=== PATIENT | female | born 1990 | race Caucasian/White ===

== ENCOUNTER 2016-11-14 17:30 | Emergency (ER) | payer OTHER ==
[2016-11-14 17:37] VITALS: BP 125/73; PULSE 127; TEMP 98; BMI 26.5
[2016-11-14] MEDS ORDERED: LIDOCAINE VISCOUS 2% ORAL/TOP 100 ML BOTTLE MM ONE (18:09)
[2016-11-14] MEDS ORDERED: PANTOPRAZOLE SODIUM 40 MG in SODIUM CHLORIDE 100 ML IVPB ONE (18:09)
[2016-11-14] MEDS ORDERED: FAMOTIDINE 20 MG/50 ML IVPB 50 ML IVPB ONE ×2 (18:09→18:28)
[2016-11-14] MEDS ORDERED: MAG HYDROX/AL HYDROX/SIMETH 30 ML UNIT-DOSE CUP PO ONE (18:09)
[2016-11-14] MEDS ORDERED: MAG HYDROX/AL HYDROX/SIMETH 30 ML UNIT-DOSE CUP ONE (18:27)
[2016-11-14] MEDS ORDERED: PANTOPRAZOLE SODIUM 40 MG VIAL ONE (18:28)
--- NOTE | 2016-11-14 18:28 | PDOC ---
History of Present Illness <Hermes Tan - Last Filed: 11/14/16 18:28> - General History Source: Patient Exam Limitations: No Limitations - History of Present Illness Initial Comments: 11/14/16 18:29 The patient is a 25 year old female with significant past medical history of Graves disease, Dafne's disease, hyperthyroid, microcephaly, asthma who presents to the ED BIB mom for midsternal chest pain. She notes that the pain radiates to her upper back. As per mom she ate pashto food at 11 and at 2 she had spicy sausage and ziti after which she began to experience the chest discomfort. She notes that she took TUMS chewables which usually alleviates this pain but the pain continued. She reports that she has history of asymptomatic pneumonia. She reports 1 vomiting episode of only thick phlegm. She denies any fever, chills, cough, headache or constipation. FHX: everyone had cholecystectomy but her as per mother PCP - Dr. Chand <Kisha Reese - Last Filed: 11/14/16 18:58> <Brannon Vidal - Last Filed: 11/14/16 21:06> <Denton Wilson - Last Filed: 11/14/16 21:17> - General Chief Complaint: Chest Pain Stated Complaint: CHEST PAIN Time Seen by Provider: 11/14/16 18:00 Past History - Past Medical History GI Disorders: Yes Thyroid Disease: Yes (GRAVES, DAFNE) - Surgical History Abdominal Surgery: Yes (double hernia as child) - Immunization History Immunization Up to Date: Yes - Psycho/Social/Smoking Cessation Hx Anxiety: No Suicidal Ideation: No Smoking Status: No Smoking History: Never smoked Have you smoked in the past 12 months: No Number of Cigarettes Smoked Daily: 0 Information on smoking cessation initiated: No Hx Alcohol Use: No Drug/Substance Use Hx: No Substance Use Type: None Hx Substance Use Treatment: No <Hermes Tan - Last Filed: 11/14/16 18:28> <Kisha Reese - Last Filed: 11/14/16 18:58> <Brannon Vidal - Last Filed: 11/14/16 21:06> <Denton Wilson - Last Filed: 11/14/16 21:17> - Past Medical History Allergies/Adverse Reactions: Allergies Allergy/AdvReac Type Severity Reaction Status Date / Time No Known Allergies Allergy Verified 11/14/16 17:37 Home Medications: Ambulatory Orders Pantoprazole Sodium [Protonix] 40 mg PO DAILY #30 tablet. 11/14/16 Propylthiouracil 100 mg PO DAILY 11/14/16 Review of Systems - Review of Systems Able to Perform ROS?: Yes Comments:: 11/14/16 18:31 GENERAL/CONSTITUTIONAL: No fever or chills. No weakness. HEAD, EYES, EARS, NOSE AND THROAT: No change in vision. No ear pain or discharge. No sore throat. CARDIOVASCULAR: +chest pain. No shortness of breath. RESPIRATORY: No cough, wheezing, or hemoptysis. GASTROINTESTINAL: No nausea, vomiting, diarrhea or constipation. GENITOURINARY: No dysuria, frequency, or change in urination. MUSCULOSKELETAL: No joint or muscle swelling or pain. No neck or back pain. SKIN: No rash NEUROLOGIC: No headache, vertigo, loss of consciousness, or change in strength/ sensation. ENDOCRINE: No increased thirst. No abnormal weight change. HEMATOLOGIC/LYMPHATIC: No anemia, easy bleeding, or history of blood clots. ALLERGIC/IMMUNOLOGIC: No hives or skin allergy. <Kisha Reese - Last Filed: 11/14/16 18:58> *Physical Exam - Vital Signs Last Vital Signs Temp Pulse Resp BP Pulse Ox 98 F 127 H 18 125/73 98 11/14/16 17:31 11/14/16 17:31 11/14/16 17:31 11/14/16 17:31 11/14/16 18:12 <Hermes Tan - Last Filed: 11/14/16 18:28> - Vital Signs Last Vital Signs Temp Pulse Resp BP Pulse Ox 98 F 127 H 18 125/73 98 11/14/16 17:31 11/14/16 17:31 11/14/16 17:31 11/14/16 17:31 11/14/16 18:12 - Physical Exam Comments: 11/14/16 18:31 GENERAL: Awake, alert, and fully oriented, in no acute distress HEAD: No signs of trauma EYES: PERRLA, EOMI, sclera anicteric, conjunctiva clear ENT: Auricles normal inspection, hearing grossly normal, nares patent, oropharynx clear without exudates. Moist mucosa NECK: Normal ROM, supple, no lymphadenopathy, JVD, or masses LUNGS: Breath sounds equal, clear to auscultation bilaterally. No wheezes, and no crackles HEART: Regular rate and rhythm, normal S1 and S2, no murmurs, rubs or gallops ABDOMEN: Soft, nontender, normoactive bowel sounds. No guarding, no rebound. No masses EXTREMITIES: Normal range of motion, no edema. No clubbing or cyanosis. No cords, erythema, or tenderness NEUROLOGICAL: Cranial nerves II through XII grossly intact. Normal speech, normal gait SKIN: Warm, Dry, normal turgor, no rashes or lesions noted. <Kisha Reese - Last Filed: 11/14/16 18:58> - Vital Signs Last Vital Signs Temp Pulse Resp BP Pulse Ox 98 F 127 H 18 125/73 98 11/14/16 17:31 11/14/16 17:31 11/14/16 17:31 11/14/16 17:31 11/14/16 18:12 <Brannon Vidal - Last Filed: 11/14/16 21:06> - Vital Signs Last Vital Signs Temp Pulse Resp BP Pulse Ox 98 F 127 H 18 125/73 98 11/14/16 17:31 11/14/16 17:31 11/14/16 17:31 11/14/16 17:31 11/14/16 18:12 <Denton Wilson - Last Filed: 11/14/16 21:17> Heart Score/ECG Review #1 11/14/16 18:[address] Tan. Impression: sinus tachycardia, low voltage QRS, vent rate 117 bpm. <Kisha Reese - Last Filed: 11/14/16 18:58> ED Treatment Course - RADIOLOGY Radiology Studies Ordered: Category Date Time Status CHEST PA & LAT [RAD] Stat Radiology 11/14/16 18:09 Ordered ABDOMEN US -LIMITED [US] Stat Ultrasound 11/14/16 18:09 Ordered <Hermes Tan - Last Filed: 11/14/16 18:28> - LABORATORY CBC & Chemistry Diagram: 11/14/16 18:25 11/14/16 18:25 <Kisha Reese - Last Filed: 11/14/16 18:58> - LABORATORY CBC & Chemistry Diagram: 11/14/16 18:25 11/14/16 18:25 - ADDITIONAL ORDERS Additional order review: Laboratory Results 11/14/16 11/14/16 11/14/16 18:36 18:25 18:25 INR 0.99 Sodium 142 Potassium 3.8 Chloride 105 Carbon Dioxide 28 Anion Gap 9 BUN 12 Creatinine 1.0 D Creat Clearance w eGFR > 60 Random Glucose 131 H D Calcium 9.0 Total Bilirubin 0.2 D AST 12 L ALT 20 D Alkaline Phosphatase 113 Total Protein 7.8 Albumin 3.9 Lipase 156 Urine HCG, Qual Negative 11/14/16 18:25 RBC 4.59 MCV 85.4 MCHC 32.9 RDW 14.0 MPV 9.8 Neutrophils % 68.8 Lymphocytes % 24.7 Monocytes % 4.5 Eosinophils % 1.6 Basophils % 0.4 - RADIOLOGY Radiology Studies Ordered: 11/14/16 20:55 EXAM: Abdomen US (RUQ Sonogram) INTERPRETED BY: Dr. Liu REVIEWED BY: Dr. Wilson IMPRESSION: Unremarkable study EXAM: CXR INTERPRETED BY: Dr. Liu REVIEWED BY: Dr. Wilson IMPRESSION: No active disease - Medications Given in the ED: ED Medications Discontinued Medications Generic Name Dose Route Start Last Admin Trade Name Nataliya PRN Reason Stop Dose Admin Al Hydroxide/Mg Hydroxide 30 ml 11/14/16 18:09 11/14/16 18:47 Mylanta Oral Suspension - PO 11/14/16 18:10 30 ml ONCE ONE Administration Pantoprazole Sodium 40 mg/ 100 mls @ 200 mls/hr 11/14/16 18:09 11/14/16 18:47 Sodium Chloride IVPB 11/14/16 18:38 200 mls/hr ONCE ONE Administration Famotidine/Sodium Chloride 50 mls @ 100 mls/hr 11/14/16 18:09 11/14/16 18:47 Pepcid 20 Mg Premixed Ivpb - IVPB 11/14/16 18:38 100 mls/hr ONCE ONE Administration Lidocaine HCl 30 ml 11/14/16 18:09 11/14/16 18:47 Xylocaine 2% Viscous MM 11/14/16 18:10 30 ml ONCE ONE Administration <Brannon Vidal - Last Filed: 11/14/16 21:06> - LABORATORY CBC & Chemistry Diagram: 11/14/16 18:25 11/14/16 18:25 - ADDITIONAL ORDERS Additional order review: Laboratory Results 11/14/16 11/14/16 11/14/16 18:36 18:25 18:25 INR 0.99 Sodium 142 Potassium 3.8 Chloride 105 Carbon Dioxide 28 Anion Gap 9 BUN 12 Creatinine 1.0 D Creat Clearance w eGFR > 60 Random Glucose 131 H D Calcium 9.0 Total Bilirubin 0.2 D AST 12 L ALT 20 D Alkaline Phosphatase 113 Total Protein 7.8 Albumin 3.9 Lipase 156 Urine HCG, Qual Negative 11/14/16 18:25 RBC 4.59 MCV 85.4 MCHC 32.9 RDW 14.0 MPV 9.8 Neutrophils % 68.8 Lymphocytes % 24.7 Monocytes % 4.5 Eosinophils % 1.6 Basophils % 0.4 - Medications Given in the ED: ED Medications Discontinued Medications Generic Name Dose Route Start Last Admin Trade Name Jimq PRN Reason Stop Dose Admin Al Hydroxide/Mg Hydroxide 30 ml 11/14/16 18:09 11/14/16 18:47 Mylanta Oral Suspension - PO 11/14/16 18:10 30 ml ONCE ONE Administration Pantoprazole Sodium 40 mg/ 100 mls @ 200 mls/hr 11/14/16 18:09 11/14/16 18:47 Sodium Chloride IVPB 11/14/16 18:38 200 mls/hr ONCE ONE Administration Famotidine/Sodium Chloride 50 mls @ 100 mls/hr 11/14/16 18:09 11/14/16 18:47 Pepcid 20 Mg Premixed Ivpb - IVPB 11/14/16 18:38 100 mls/hr ONCE ONE Administration Lidocaine HCl 30 ml 11/14/16 18:09 11/14/16 18:47 Xylocaine 2% Viscous MM 11/14/16 18:10 30 ml ONCE ONE Administration <Denton Wilson - Last Filed: 11/14/16 21:17> Medical Decision Making - Medical Decision Making 11/14/16 18:30 The patient is a 25 year old female with significant past medical history of Graves disease, Dafne's disease, hyperthyroid, microcephaly, asthma who presents to the ED with midsternal chest pain after eating hot and spicy sausage . Will order CXR, meds and labs. Will reassess. 11/14/16 18:58 Since my shift is over, I endorse continuation of care to Dr. Wilson, an overnight physician. <Kisha Reese - Last Filed: 11/14/16 18:58> *DC/Admit/Observation/Transfer - Attestations Physician Attestion: 11/14/16 18:28 I, Dr. Hermes Tan, attest that this document has been prepared under my direction and personally reviewed by me in its entirety. I further attest, that it accurately reflects all work, treatment, procedures and medical decision -making performed by me. <Hermes Tan - Last Filed: 11/14/16 18:28> - Attestations Scribe Attestion: 11/14/16 18:31 Documentation prepared by DORIS Metzger, acting as medical clerk for Hermes Tan MD/DO. <Kisha Reese - Last Filed: 11/14/16 18:58> - Attestations Scribe Attestion: 11/14/16 20:57 Documentation prepared by Brannon Vidal, acting as medical clerk for Denton Wilson MD. <Brannon Vidal - Last Filed: 11/14/16 21:06> - Discharge Dispostion Admit: No <Denton Wilson - Last Filed: 11/14/16 21:17> Diagnosis at time of Disposition: Gastroesophageal reflux disease, Gastritis - Discharge Dispostion Disposition: HOME Condition at time of disposition: Improved - Prescriptions Prescriptions: Pantoprazole Sodium [Protonix] 40 mg PO DAILY #30 tablet.dr - Referrals Referrals: Otto Chand MD [Primary Care Provider] - - Patient Instructions Printed Discharge Instructions: DI for Gastroesophageal Reflux Disease (GERD), DI for Gastritis
[2016-11-14 18:41] LABS: BASOPHIL 0.4 % (0-2.0); EOSINOPHIL 1.6 % (0-4.5); MCH 28.1 pg (25.7-33.7); MCHC 32.9 g/dl (32.0-36.0); MEAN CELL VOLUME 85.4 fl (80-96); MEAN PLT VOLUME 9.8 fl (7.5-11.1); NEUTROPHILS 68.8 % (42.8-82.8); PLATELET COUNT 272 K/MM3 (134-434); WHITE BLOOD COUNT 9.1 K/mm3 (4.0-10.0)
[2016-11-14 18:59] LABS: ALBUMIN 3.9 g/dl (3.4-5.0); ANION GAP 9 (8-16); CO2 28 mmol/L (21-32); GLUCOSE,RANDOM 131 mg/dL (74-106); SGOT/AST 12 U/L (15-37); SGPT/ALT 20 U/L (12-78)
[2016-11-14 19:01] LABS: ALK PHOS 113 U/L (45-117); BILIRUBIN,TOTAL 0.2 mg/dL (0.2-1.0); TOT PROT 7.8 g/dl (6.4-8.2)
[2016-11-14 19:02] LABS: INR 0.99 (0.82-1.09); PROTHROMBIN TIME (PATIENT) 10.9 SEC (9.98-11.88)
--- NOTE | 2016-11-15 13:28 | EKG ---
Test Reason : Blood Pressure : / mmHG Vent. Rate : 117 BPM Atrial Rate : 117 BPM P-R Int : 124 ms QRS Dur : 062 ms QT Int : 304 ms P-R-T Axes : 060 011 036 degrees QTc Int : 424 ms SINUS TACHYCARDIA LOW VOLTAGE QRS CANNOT RULE OUT ANTERIOR INFARCT , AGE UNDETERMINED ABNORMAL ECG WHEN COMPARED WITH ECG OF 31-JUL-2015 06:35, NO SIGNIFICANT CHANGE WAS FOUND Confirmed by STANLEY VITALE MD ([id number]) on 11/15/2016 1:27:53 PM Referred By: Confirmed By:STANLEY VITALE MD
== END 2016-11-14 21:20 | disposition home or self-care (01) ==
LOC: JER 17:30
PROC: 3E033GC Introduction of Other Therapeutic Substance into Peripheral Vein, Percutaneous Approach (ICD-10-PCS; principal; 2016-11-14)
PROC: 3E033GC Introduction of Other Therapeutic Substance into Peripheral Vein, Percutaneous Approach (ICD-10-PCS; 2016-11-14)
DX: K21.9 Gastro-esophageal reflux disease without esophagitis (principal); K29.00 Acute gastritis without bleeding
CPT/HCPCS: 36415; 71020-TC; 76705-TC; 80053; 83690; 84703; 85025; 85610; 93005; 93010; 96365; 96368; 99284-25

== ENCOUNTER 2019-08-24 14:22 | Inpatient (IN) | payer OTHER ==
--- NOTE | 2019-08-24 14:26 | PDOC ---
Rapid Medical Evaluation Chief Complaint: Pain Medical Evaluation: Allergies Allergy/AdvReac Type Severity Reaction Status Date / Time No Known Allergies Allergy Verified 11/14/16 17:37 08/24/19 14:29 28 year old female with upper abdominal pain send from Dr. Chand's office for evaluation + nausea, PMHX: Hypothyroidism, graves disease, osteoporosis Pe: patient alert ox3 A: epigastric abdominal pain p: EKG labs UA urine 08/24/19 14:33 Discharge Disposition - Diagnosis Abdominal pain Qualifiers: Abdominal location: upper abdomen, unspecified Qualified Code(s): R10.10 - Upper abdominal pain, unspecified - Referrals - Patient Instructions - Post Discharge Activity
[2019-08-24 14:33] VITALS: BMI 30.9
[2019-08-24] MEDS ORDERED: MAG HYDROX/AL HYDROX/SIMETH 30 ML UNIT-DOSE CUP PO ONE (15:01)
[2019-08-24] MEDS ORDERED: FAMOTIDINE 20 MG/50 ML IVPB 20 MG/50 ML MG IVPB ONE ×2 (15:01→15:45)
[2019-08-24] MEDS ORDERED: SODIUM CHLORIDE 1,000 ML IV STA (15:01)
[2019-08-24] MEDS ORDERED: ONDANSETRON *ODT* 4 MG TABLET SL ONE (15:01)
[2019-08-24] MEDS ORDERED: ACETAMINOPHEN 1000 MG/100 ML VIAL (NON FORMULARY) IVPB ONE (15:02)
--- NOTE | 2019-08-24 15:28 | PDOC ---
History of Present Illness - General Chief Complaint: Pain Stated Complaint: SENT BY PCP/CHEST PAIN Time Seen by Provider: 08/24/19 14:26 History Source: Patient Exam Limitations: Clinical Condition - History of Present Illness Travel History: No Initial Comments: 08/24/19 15:40 Patient with history of hypothyroidism on Synthroid, Graves' disease, hydrocephalus presented with complaint of 3-day history of epigastric and right upper quadrant pain with nausea. Patient was seen by PCP office today to rule out cholecystitis or gallstone. Denies vomiting, fever, chills, body aches. Patient has not taken anything for symptoms. Denies diarrhea but report mild constipation with last bowel movement yesterday Timing/Duration: reports: getting worse Quality: reports: moderate, sharpness Abdominal Pain Onset Location: reports: RUQ, epigastric Pain Radiation: reports: back Activities at Onset: reports: none Aggravating Factors: improves with: Voiding Past History - Past Medical History Allergies/Adverse Reactions: Allergies Allergy/AdvReac Type Severity Reaction Status Date / Time No Known Allergies Allergy Verified 08/24/19 14:29 Home Medications: Ambulatory Orders Calcium Carbonate [Calcium] 1,200 mg PO DAILY 08/01/15 Cholecalciferol (Vitamin D3) [Vitamin D3] 2,000 unit PO AM 08/01/15 Levothyroxine [Synthroid -] 75 mcg PO DAILY 08/01/15 COPD: No GI Disorders: Yes Thyroid Disease: Yes (GRAVES, LOLIS) Other medical history: osteoporosis, scoliosis - Surgical History Abdominal Surgery: Yes (double hernia as child) - Immunization History Immunization Up to Date: Yes - Psycho Social/Smoking Cessation Hx Smoking Status: No Smoking History: Never smoked Have you smoked in the past 12 months: No Number of Cigarettes Smoked Daily: 0 Hx Alcohol Use: No Drug/Substance Use Hx: No Substance Use Type: None Hx Substance Use Treatment: No Review of Systems - Review of Systems Able to Perform ROS?: Yes Is the patient limited Turkish proficient: No Constitutional: No: Chills, Fever, Malaise HEENTM: No: Symptoms Reported, See HPI, Eye Pain, Blurred Vision, Tearing, Recent change in vision, Double Vision, Cataracts, Ear Pain, Ocular Prothesis, Ear Discharge, Nose Pain, Nose Congestion, Tinnitus, Nose Bleeding, Hearing Loss , Throat Pain, Throat Swelling, Mouth Pain, Dental Problems, Difficulty Swallowing, Mouth Swelling, Other Respiratory: No: Symptoms reported, See HPI, Cough, Orthopnea, Shortness of Breath, SOB with Exertion, SOB at Rest, Stridor, Wheezing, Productive cough, Hemoptysis, Other ABD/GI: Yes: Symptoms Reported, See HPI, Nausea, Abdominal cramping (RUQ/ epigastric pain). No: Abdominal Distended, Abd. Pain w/ defecation, Blood Streaked Bowels, Constipated, Diarrhea, Difficulty Swallowing, Poor Appetite, Poor Fluid Intake, Rectal Bleeding, Vomiting, Indigestion, Tarry Stools, Other : No: Burning, Discharge, Frequency, Pain, Urgency Musculoskeletal: No: Symptoms Reported Integumentary: No: Symptoms Reported Neurological: Yes: Symptoms reported, See HPI, Headache. No: Numbness, Paresthesia, Seizure, Tremors, Dizziness All Other Systems: Reviewed and Negative *Physical Exam - Vital Signs Last Vital Signs Temp Pulse Resp BP Pulse Ox 97.7 F 117 H 18 129/83 100 08/24/19 14:30 08/24/19 14:30 08/24/19 14:30 08/24/19 14:30 08/24/19 14:30 - Physical Exam Comments: 08/24/19 15:26 GENERAL: Well developed, well nourished. Awake and alert. No acute distress. HEENT: Normocephalic, atraumatic. PERRLA, EOMI. No conjunctival pallor. Sclera are non-icteric. Moist mucous membranes. Oropharynx is clear. NECK: Supple. Full ROM. CARDIOVASCULAR: Regular rate and rhythm. No murmurs, rubs, or gallops. Distal pulses are 2+ and symmetric. PULMONARY: No evidence of respiratory distress. Lungs clear to auscultation bilaterally. No wheezing, rales or rhonchi. ABDOMINAL: Soft. moderate epigastric and RUQ tenderness. Non-distended. No rebound or guarding. No organomegaly. Normoactive bowel sounds. MUSCULOSKELETAL Normal range of motion at all joints. SKIN: Warm and dry. Normal capillary refill. No rashes. No jaundice. No Cyanosis. NEUROLOGICAL: Alert, awake, appropriate. Gait is normal without ataxia. PSYCHIATRIC: Cooperative. Good eye contact. Appropriate mood General Appearance: Yes: Nourished, Appropriately Dressed. No: Apparent Distress ED Treatment Course - LABORATORY CBC & Chemistry Diagram: 11/18/19 05:50 08/27/19 05:50 - RADIOLOGY Radiology Studies Ordered: Category Date Time Status ABDOMEN US -LIMITED [US] Stat Ultrasound 08/24/19 15:00 Ordered Medical Decision Making - Medical Decision Making 08/24/19 15:42 Patient with history of hypothyroidism on Synthroid, Graves' disease, hydrocephalus presented with complaint of 3-day history of epigastric and right upper quadrant pain with nausea. Patient was seen by PCP office today to rule out cholecystitis or gallstone. Denies vomiting, fever, chills, body aches. Patient has not taken anything for symptoms. Denies diarrhea but report mild constipation with last bowel movement yesterday Exam significant for moderate tenderness to epigastric region right upper quadrant without guarding or rebound. Diffuse increased bowel sounds. No masses palpable in the abdomen. Patient afebrile. Symptoms likely cholecystitis versus gallstone versus pancreatitis. CBC, CMP and lipase lab ordered. UA, urine hCG and urine culture labs ordered. Abdominal ultrasound ordered to rule out cholecystitis or gallstone. IV hydration with normal saline 1 L ordered and Tylenol 1 g IV ordered for pain. Pepcid 20 mg IV ordered for epigastric discomfort and Maalox 30 mL p.o. ordered with 4 mg sublingual Zofran for nausea. Treat based on lab and imaging results 08/26/19 15:56 Patient signed out to oncoming team YENNY Mijares for f/u care Discharge - Discharge Information Problems reviewed: Yes Clinical Impression/Diagnosis: Abdominal pain Qualifiers: Abdominal location: epigastric Qualified Code(s): R10.13 - Epigastric pain Condition: Stable - Follow up/Referral - Patient Discharge Instructions - Post Discharge Activity
[2019-08-24] MEDS ORDERED: ACETAMINOPHEN INJECTION 100 ML IVPB ONE (15:44)
[2019-08-24] MEDS ORDERED: ONDANSETRON *ODT* 4 MG TABLET ONE (15:44)
[2019-08-24] MEDS ORDERED: MAG HYDROX/AL HYDROX/SIMETH 30 ML UNIT-DOSE CUP ONE (15:44)
[2019-08-24 16:00] LABS: BASO % 0.3 % (0-2.0); EOS % 0.4 % (0-4.5); HEMATOCRIT 39.5 % (32.4-45.2); HEMOGLOBIN 12.9 GM/dL (10.7-15.3); LYMPH % 13.3 % (8-40); MCHC 32.7 g/dl (32.0-36.0); MEAN CELL VOLUME 82.7 fl (80-96); MEAN PLT VOLUME 9.6 fl (7.5-11.1); MONO % 6.8 % (3.8-10.2); NEUT % 79.2 % (42.8-82.8); PLATELET COUNT 300 K/MM3 (134-434); RBC 4.77 M/mm3 (3.60-5.2); RDW 14.5 % (11.6-15.6); WHITE BLOOD COUNT 9.1 K/mm3 (4.0-10.0)
[2019-08-24 16:36] LABS: ALBUMIN 3.8 g/dl (3.4-5.0); BILIRUBIN,TOTAL 0.4 mg/dL (0.2-1); BLOOD UREA NITROGEN 8.1 mg/dL (7-18); CALCIUM 9.2 mg/dL (8.5-10.1); CREATININE 0.8 mg/dL (0.55-1.3); POTASSIUM 3.8 mmol/L (3.5-5.1); TOT PROT 8.4 g/dl (6.4-8.2)
--- NOTE | 2019-08-24 17:15 | PDOC ---
*Physical Exam - Vital Signs Last Vital Signs Temp Pulse Resp BP Pulse Ox 97.7 F 117 H 18 129/83 100 08/24/19 14:30 08/24/19 14:30 08/24/19 14:30 08/24/19 14:30 08/24/19 15:15 ED Treatment Course - LABORATORY CBC & Chemistry Diagram: 08/24/19 15:35 08/24/19 15:35 - ADDITIONAL ORDERS Additional order review: Laboratory Results 08/24/19 15:35 Sodium 136 Potassium 3.8 Chloride 103 Carbon Dioxide 24 Anion Gap 8 BUN 8.1 Creatinine 0.8 Est GFR (CKD-EPI)AfAm 115.47 Est GFR (CKD-EPI)NonAf 99.63 Random Glucose 103 Calcium 9.2 Total Bilirubin 0.4 AST 35 ALT 51 Alkaline Phosphatase 120 H Total Protein 8.4 H Albumin 3.8 Lipase 1163 H TSH 2.47 08/24/19 15:35 RBC 4.77 MCV 82.7 MCHC 32.7 RDW 14.5 MPV 9.6 Neutrophils % 79.2 Lymphocytes % 13.3 D Monocytes % 6.8 Eosinophils % 0.4 Basophils % 0.3 - Medications Given in the ED: ED Medications Discontinued Medications Generic Name Dose Route Start Last Admin Trade Name Frechase PRN Reason Stop Dose Admin Acetaminophen 1,000 mg 08/24/19 15:02 08/24/19 16:41 Ofirmev Injection - IVPB 08/24/19 15:03 1,000 mg ONCE ONE Administration Al Hydroxide/Mg Hydroxide 30 ml 08/24/19 15:01 08/24/19 16:20 Mylanta Oral Suspension - PO 08/24/19 15:02 30 ml ONCE ONE Administration Sodium Chloride 1,000 mls @ 1,000 mls/hr 08/24/19 15:01 08/24/19 16:40 Normal Saline - IV 08/24/19 16:00 1,000 mls/hr ASDIR STA Administration Ondansetron HCl 4 mg 08/24/19 15:01 08/24/19 16:20 Zofran Odt - SL 08/24/19 15:02 4 mg ONCE ONE Administration Medical Decision Making - Medical Decision Making Patient signed out to by YENNY Moss, pending labs and RUQ sono Patient currently resting in NAD RUQ sono negative for any acute findings Labs reviewed - T.Bili, AST, ALT normal Lipase elevated though Will admit for acute pancreatitis 08/24/19 17:13 Discharge - Discharge Information Problems reviewed: Yes Clinical Impression/Diagnosis: Acute pancreatitis Qualifiers: Pancreatitis type: unspecified pancreatitis type Acute pancreatitis complication: unspecified Qualified Code(s): K85.90 - Acute pancreatitis without necrosis or infection, unspecified Condition: Stable - Admission Yes - Follow up/Referral Referrals: Rj Kiser, HUGH [Primary Care Provider] - - Patient Discharge Instructions - Post Discharge Activity
--- NOTE | 2019-08-24 17:55 | HP ---
CHIEF COMPLAINT: right upper abdominal pain, nausea PCP: Dr. 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 Patient was seen in the ED pending bed assignment. She is not able to provide me a full history , her mom was at the bedside and was able to provide the history. Per patient' s mom, patient was born prematurely with microcephaly and was intubated for the first 3 months of her life. She follows closely with a chaser apprentice for her Graves disease and was on PTU since age 12, she was taken off PTU and put on Synthroid. Synthroid recently increased four (4) months ago by chaser apprentice (she was initially on Synthroid 50mcg and increased to 75mcgs). Patient presents to the ED after she was seen by her primary care doctor for complaints of a 3-day history of epigastric and right upper quadrant pain with nausea. Patient denies fever, diarrhea or constipation. her last BM was yesterday. On exam patient had moderate tenderness of light palpation of her right upper abdomen without any guarding or rebound. She had bowel sounds without any palpable masses on abdomen. She is afebrile and her vitals signs are stable. 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 : Social History: Smoking: denies Alcohol:denies Drugs: denies Allergies No Known Allergies Allergy (Verified 08/24/19 14:29) HOME MEDICATIONS: Home Medications Medication Instructions Recorded Calcium Carbonate [Calcium] 1,200 mg PO DAILY 08/01/15 Cholecalciferol (Vitamin D3) 3,000 unit PO AM 08/01/15 [Vitamin D3] Levothyroxine [Synthroid -] 37.5 mcg PO DAILY 08/01/15 Pantoprazole Sodium [Protonix] 40 mg PO DAILY #30 tablet. 11/14/16 Propylthiouracil 100 mg PO DAILY 11/14/16 PHYSICAL EXAMINATION Vital Signs - 24 hr 08/24/19 08/24/19 14:30 15:15 Temperature 97.7 F Pulse Rate 117 H Respiratory 18 Rate Blood Pressure 129/83 O2 Sat by Pulse 100 100 Oximetry (%) GENERAL: Awake, alert, and oriented, in no acute distress. poor historian HEAD: Normal with no signs of trauma. EYES: Pupils equal, round and reactive to light, extraocular movements intact, sclera anicteric, conjunctiva clear. No lid lag. EARS, NOSE, THROAT: Ears normal, nares patent, oropharynx clear without exudates. Moist mucous membranes. NECK: Normal range of motion, supple without lymphadenopathy, JVD, or masses. LUNGS: Breath sounds equal, clear to auscultation bilaterally. HEART: Regular rate and rhythm ABDOMEN: + epigastric pain ruq pain, + bowel sounds, non distended MUSCULOSKELETAL: Normal range of motion at all joints. No bony deformities or tenderness. No CVA tenderness. UPPER EXTREMITIES: 2+ pulses, warm, well-perfused. No cyanosis. No clubbing. No peripheral edema. LOWER EXTREMITIES: 2+ pulses, warm, well-perfused. No calf tenderness. No peripheral edema. SKIN: Warm, dry, normal turgor, no rashes or lesions noted, normal capillary refill. Laboratory Results - last 24 hr 08/24/19 08/24/19 15:35 15:35 WBC 9.1 RBC 4.77 Hgb 12.9 Hct 39.5 MCV 82.7 MCH 27.0 MCHC 32.7 RDW 14.5 Plt Count 300 MPV 9.6 Absolute Neuts (auto) 7.2 Neutrophils % 79.2 Lymphocytes % 13.3 D Monocytes % 6.8 Eosinophils % 0.4 Basophils % 0.3 Nucleated RBC % 0 Sodium 136 Potassium 3.8 Chloride 103 Carbon Dioxide 24 Anion Gap 8 BUN 8.1 Creatinine 0.8 Est GFR (CKD-EPI)AfAm 115.47 Est GFR (CKD-EPI)NonAf 99.63 Random Glucose 103 Calcium 9.2 Total Bilirubin 0.4 AST 35 ALT 51 Alkaline Phosphatase 120 H Total Protein 8.4 H Albumin 3.8 Lipase 1163 H TSH 2.47 ASSESSMENT/PLAN: Family Medical History Family History: Denies Problem List - Problem (1) Elevated lipase Assessment/Plan: elevated lipase on admissio with ruq pain/nausea ultrasound negative for acute process will keep npo with ivf hydration repeat lipase in a.m. GI consulted. Code(s): R74.8 - ABNORMAL LEVELS OF OTHER SERUM ENZYMES (2) Acute pancreatitis Assessment/Plan: elevated lipase unclear etiology. medication induced? keep npo may need ct abd/pelvis if worsening lipase Code(s): K85.90 - ACUTE PANCREATITIS WITHOUT NECROSIS OR INFECTION, UNSP Qualifiers: Pancreatitis type: unspecified pancreatitis type Acute pancreatitis complication: unspecified Qualified Code(s): K85.90 - Acute pancreatitis without necrosis or infection, unspecified (3) GERD (gastroesophageal reflux disease) Assessment/Plan: protonix IV Code(s): K21.9 - GASTRO-ESOPHAGEAL REFLUX DISEASE WITHOUT ESOPHAGITIS (4) Headache Assessment/Plan: no headaches reported, however, hx of chronic headaches tylenol iv prn Code(s): R51 - HEADACHE Qualifiers: Headache type: unspecified Headache chronicity pattern: acute headache Intractability: not intractable Qualified Code(s): R51 - Headache (5) Prophylactic measure Assessment/Plan: fen ivf @ 100cc hr monitor electrolytes npo full code Code(s): Z29.9 - ENCOUNTER FOR PROPHYLACTIC MEASURES, UNSPECIFIED Visit type - Emergency Visit Emergency Visit: Yes ED Registration Date: 08/24/19 Care time: The patient presented to the Emergency Department on the above date and was hospitalized for further evaluation of their emergent condition. - New Patient This patient is new to me today: Yes Date on this admission: 08/24/19 - Critical Care Critical Care patient: No
[2019-08-24] MEDS ORDERED: ONDANSETRON 4 MG/2 ML VIAL IVPUSH PRN (20:05)
[2019-08-24] MEDS ORDERED: SODIUM CHLORIDE 1,000 ML IV SCH (20:15)
[2019-08-24] MEDS: ACETAMINOPHEN 1000 MG/100 ML VIAL (NON FORMULARY) IVPB PRN (23:16)
[2019-08-25 06:37] LABS: HEMATOCRIT 34.5 % (32.4-45.2); HEMOGLOBIN 11.3 GM/dL (10.7-15.3); MCH 27.1 pg (25.7-33.7); MCHC 32.8 g/dl (32.0-36.0); MEAN CELL VOLUME 82.7 fl (80-96); PLATELET COUNT 259 K/MM3 (134-434); RBC 4.17 M/mm3 (3.60-5.2); RDW 14.5 % (11.6-15.6); WHITE BLOOD COUNT 6.2 K/mm3 (4.0-10.0)
[2019-08-25 07:13] LABS: BLOOD UREA NITROGEN 7.9 mg/dL (7-18); CALCIUM 8.5 mg/dL (8.5-10.1); CREATININE 0.6 mg/dL (0.55-1.3); MAGNESIUM 2.2 mg/dL (1.8-2.4); POTASSIUM 3.6 mmol/L (3.5-5.1)
[2019-08-25 09:21] LABS: EPI CELLS 12.3 /HPF (0-5/HPF); HYALINE CASTS 2 /lpf (0-8); PH,URINE 6.5 (5.0-8.0); URINE APPEARANCE CLEAR; URINE BACTERIA 257.6 /hpf (NEGATIVE); URINE BILIRUBIN NEGATIVE (NEGATIVE); URINE COLOR YELLOW; URINE GLUCOSE (UA) NEGATIVE (NEGATIVE); URINE KETONE 1+ (NEGATIVE); URINE LEUK ESTERASE NEGATIVE (NEGATIVE); URINE NITRITE NEGATIVE (NEGATIVE); URINE PROTEIN NEGATIVE (NEGATIVE); URINE RBC 4 /hpf (0-4); URINE UROBILINOGEN 0.2 mg/dL (0.2-1.0)
[2019-08-25 09:34] LABS: URINE WBC 0-4 /hpf (0-5)
[2019-08-25 09:35] LABS: YEAST NEGATIVE (NEGATIVE)
[2019-08-25] MEDS: LEVOTHYROXINE SODIUM 100 MCG VIAL IVPUSH SCH (10:01)
[2019-08-25] MEDS ORDERED: SODIUM CHLORIDE 1,000 ML IV SCH (15:33)
[2019-08-25 17:13] LABS: ALK PHOS 93 U/L (45-117); SGOT/AST 23 U/L (15-37); SGPT/ALT 38 U/L (13-61)
--- NOTE | 2019-08-25 18:27 | PN ---
Physical Exam: SUBJECTIVE: Patient seen and examined. no overnight events, still having right upper quad pain. 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 Per patient's mom , patient was born prematurely with microcephaly and was intubated for the first 3 months of her life. She follows closely with a director of scout work for her Graves disease and was on PTU since age 12, she was taken off PTU and put on Synthroid. Synthroid recently increased four (4) months ago by director of scout work (she was initially on Synthroid 50mcg and increased to 75mcgs). Patient presents to the ED after she was seen by her primary care doctor for complaints of a 3-day history of epigastric and right upper quadrant pain with nausea. Discussed with Dr. Palma, increased IVF to 250cc/hr NS, will sent for ct scan of abd/pelvis as her lipase remains elevated. Vital Signs Period Temp Pulse Resp BP Sys/Damon Pulse Ox Last 24 Hr 97.6 F-98.3 F 67-95 16-20 100-119/57-72 96-99 GENERAL: Awake, alert, and oriented, in no acute distress. poor historian HEAD: Normal with no signs of trauma. EYES: Pupils equal, round and reactive to light, extraocular movements intact, sclera anicteric, conjunctiva clear. No lid lag. EARS, NOSE, THROAT: Ears normal, nares patent, oropharynx clear without exudates. Moist mucous membranes. NECK: Normal range of motion, supple without lymphadenopathy, JVD, or masses. LUNGS: Breath sounds equal, clear to auscultation bilaterally. HEART: Regular rate and rhythm ABDOMEN: + epigastric pain ruq pain, + bowel sounds, non distended MUSCULOSKELETAL: Normal range of motion at all joints. No bony deformities or tenderness. No CVA tenderness. UPPER EXTREMITIES: 2+ pulses, warm, well-perfused. No cyanosis. No clubbing. No peripheral edema. LOWER EXTREMITIES: 2+ pulses, warm, well-perfused. No calf tenderness. No peripheral edema. SKIN: Warm, dry, normal turgor, no rashes or lesions noted, normal capillary refill. Laboratory Results - last 24 hr 08/24/19 08/25/19 08/25/19 07:45 06:20 06:20 WBC 6.2 RBC 4.17 Hgb 11.3 Hct 34.5 MCV 82.7 MCH 27.1 MCHC 32.8 RDW 14.5 Plt Count 259 MPV 9.0 Sodium 138 Potassium 3.6 Chloride 107 Carbon Dioxide 25 Anion Gap 6 L BUN 7.9 Creatinine 0.6 Est GFR (CKD-EPI)AfAm 142.76 Est GFR (CKD-EPI)NonAf 123.17 POC Glucometer Random Glucose 88 Hemoglobin A1c % Calcium 8.5 Magnesium 2.2 AST ALT Alkaline Phosphatase Total Amylase Lipase 2212 H TSH 8.62 H Thyroxine (T4) 13.7 Urine Color Yellow Urine Appearance Clear Urine pH 6.5 Ur Specific [place] 1.018 Urine Protein Negative Urine Glucose (UA) Negative Urine Ketones 1+ H Urine Blood 3+ H Urine Nitrite Negative Urine Bilirubin Negative Urine Urobilinogen 0.2 Ur Leukocyte Esterase Negative Urine WBC (Auto) 0-4 Urine RBC (Auto) 4 Urine Casts (Auto) 2 U Epithel Cells (Auto) 12.3 Urine Bacteria (Auto) 257.6 Urine Yeast (Auto) Negative Urine HCG, Qual 08/25/19 08/25/19 08/25/19 07:45 11:15 15:08 WBC RBC Hgb Hct MCV MCH MCHC RDW Plt Count MPV Sodium Potassium Chloride Carbon Dioxide Anion Gap BUN Creatinine Est GFR (CKD-EPI)AfAm Est GFR (CKD-EPI)NonAf POC Glucometer Random Glucose Hemoglobin A1c % 5.0 Calcium Magnesium AST 23 ALT 38 Alkaline Phosphatase 93 Total Amylase Lipase TSH Thyroxine (T4) Urine Color Urine Appearance Urine pH Ur Specific [place] Urine Protein Urine Glucose (UA) Urine Ketones Urine Blood Urine Nitrite Urine Bilirubin Urine Urobilinogen Ur Leukocyte Esterase Urine WBC (Auto) Urine RBC (Auto) Urine Casts (Auto) U Epithel Cells (Auto) Urine Bacteria (Auto) Urine Yeast (Auto) Urine HCG, Qual Negative 08/25/19 08/25/19 15:08 16:50 WBC RBC Hgb Hct MCV MCH MCHC RDW Plt Count MPV Sodium Potassium Chloride Carbon Dioxide Anion Gap BUN Creatinine Est GFR (CKD-EPI)AfAm Est GFR (CKD-EPI)NonAf POC Glucometer 70 Random Glucose Hemoglobin A1c % Calcium Magnesium AST ALT Alkaline Phosphatase Total Amylase 206 H Lipase TSH Thyroxine (T4) Urine Color Urine Appearance Urine pH Ur Specific [place] Urine Protein Urine Glucose (UA) Urine Ketones Urine Blood Urine Nitrite Urine Bilirubin Urine Urobilinogen Ur Leukocyte Esterase Urine WBC (Auto) Urine RBC (Auto) Urine Casts (Auto) U Epithel Cells (Auto) Urine Bacteria (Auto) Urine Yeast (Auto) Urine HCG, Qual Active Medications Generic Name Dose Route Start Last Admin Trade Name Freq PRN Reason Stop Dose Admin Acetaminophen 1,000 mg 08/24/19 20:06 08/24/19 23:16 Ofirmev Injection - IVPB 1,000 mg Q6H PRN Administration PAIN LEVEL 4 - 6 Sodium Chloride 1,000 mls @ 200 mls/hr 08/25/19 15:33 Normal Saline - IV ASDIR TRAVIS Levothyroxine Sodium 37.5 mcg 08/25/19 10:00 08/25/19 10:01 Synthroid Injection - IVPUSH 37.5 mcg DAILY TRAVIS Administration Ondansetron HCl 4 mg 08/24/19 20:05 Zofran Injection IVPUSH Q8H PRN NAUSEA ASSESSMENT/PLAN: Problem List - Problems (1) Elevated lipase Assessment/Plan: lipase 1200 > 2200 ultrasound negative for acute process will keep npo with ivf hydration, increase ivf to 250cc/hr repeat lipase in a.m. for abd/pelvis ct to look for acute pancreatitis GI consulted and case discussed. Code(s): R74.8 - ABNORMAL LEVELS OF OTHER SERUM ENZYMES (2) Acute pancreatitis Assessment/Plan: elevated lipase unclear etiology. medication induced? keep npo, ice chips allowed Code(s): K85.90 - ACUTE PANCREATITIS WITHOUT NECROSIS OR INFECTION, UNSP Qualifiers: Pancreatitis type: unspecified pancreatitis type Acute pancreatitis complication: unspecified Qualified Code(s): K85.90 - Acute pancreatitis without necrosis or infection, unspecified (3) GERD (gastroesophageal reflux disease) Assessment/Plan: protonix IV Code(s): K21.9 - GASTRO-ESOPHAGEAL REFLUX DISEASE WITHOUT ESOPHAGITIS (4) Headache Assessment/Plan: no headaches reported, however, hx of chronic headaches tylenol iv prn Code(s): R51 - HEADACHE Qualifiers: Headache type: unspecified Headache chronicity pattern: acute headache Intractability: not intractable Qualified Code(s): R51 - Headache (5) Prophylactic measure Assessment/Plan: fen ivf @ 250cc hr monitor electrolytes npo full code Code(s): Z29.9 - ENCOUNTER FOR PROPHYLACTIC MEASURES, UNSPECIFIED Visit type - Emergency Visit Emergency Visit: Yes ED Registration Date: 08/24/19 Care time: The patient presented to the Emergency Department on the above date and was hospitalized for further evaluation of their emergent condition. - New Patient This patient is new to me today: No - Critical Care Critical Care patient: No - Discharge Referral Referred to [facility] Med P.C.: No
[2019-08-25] MEDS: SODIUM CHLORIDE 1,000 ML IV SCH (20:37)
[2019-08-26] MEDS: SODIUM CHLORIDE 1,000 ML IV SCH ×3 (00:53→10:22)
[2019-08-26] MEDS: ACETAMINOPHEN 1000 MG/100 ML VIAL (NON FORMULARY) IVPB PRN (03:47)
[2019-08-26] MEDS ORDERED: MAG HYDROX/AL HYDROX/SIMETH 30 ML UNIT-DOSE CUP PO ONE ×2 (03:51→13:27)
[2019-08-26 07:37] LABS: BASO % 0.3 % (0-2.0); EOS % 1.7 % (0-4.5); HEMATOCRIT 30.4 % (32.4-45.2); MCH 27.1 pg (25.7-33.7); MEAN CELL VOLUME 82.1 fl (80-96); MEAN PLT VOLUME 9.1 fl (7.5-11.1); MONO % 8.4 % (3.8-10.2); NEUT % 52.6 % (42.8-82.8); PLATELET COUNT 205 K/MM3 (134-434); WHITE BLOOD COUNT 4.5 K/mm3 (4.0-10.0)
[2019-08-26 07:53] LABS: CHOLESTEROL 140 mg/dL (50-200); HDL CHOLESTEROL 33 mg/dL (40-60); LDL CHOLESTEROL (ONLY SJRH) 87 mg/dL (5-100); TRIGLYCERIDES 113 mg/dL (0-150)
[2019-08-26 07:59] LABS: ALBUMIN 2.8 g/dl (3.4-5.0); BILIRUBIN,TOTAL 0.4 mg/dL (0.2-1); BLOOD UREA NITROGEN 5.9 mg/dL (7-18); CALCIUM 8.3 mg/dL (8.5-10.1); CREATININE 0.6 mg/dL (0.55-1.3); POTASSIUM 4.2 mmol/L (3.5-5.1); TOT PROT 6.2 g/dl (6.4-8.2)
[2019-08-26] MEDS: LEVOTHYROXINE SODIUM 100 MCG VIAL IVPUSH SCH (09:19)
--- NOTE | 2019-08-26 10:41 | PN ---
Progress Note (short form) - Note Progress Note: Asked to see this 28 y.o. F admitted with 3 days of upper abdominal pain, found to have elevated lipase. Pain has now fully resolved, patient anxious to eat. Laboratory Results - last 24 hr 08/25/19 08/25/19 08/25/19 11:15 15:08 15:08 WBC RBC Hgb Hct MCV MCH MCHC RDW Plt Count MPV Absolute Neuts (auto) Neutrophils % Lymphocytes % Monocytes % Eosinophils % Basophils % Nucleated RBC % Sodium Potassium Chloride Carbon Dioxide Anion Gap BUN Creatinine Est GFR (CKD-EPI)AfAm Est GFR (CKD-EPI)NonAf POC Glucometer Random Glucose Hemoglobin A1c % 5.0 Calcium Magnesium Total Bilirubin AST 23 ALT 38 Alkaline Phosphatase 93 Total Protein Albumin Triglycerides Cholesterol Total LDL Cholesterol HDL Cholesterol Total Amylase 206 H Lipase TSH Free T4 08/25/19 08/26/19 08/26/19 16:50 05:40 06:20 WBC 4.5 RBC 3.70 Hgb 10.0 L Hct 30.4 L MCV 82.1 MCH 27.1 MCHC 33.0 RDW 14.0 Plt Count 205 D MPV 9.1 Absolute Neuts (auto) 2.4 Neutrophils % 52.6 D Lymphocytes % 37.0 D Monocytes % 8.4 Eosinophils % 1.7 D Basophils % 0.3 Nucleated RBC % 0 Sodium Potassium Chloride Carbon Dioxide Anion Gap BUN Creatinine Est GFR (CKD-EPI)AfAm Est GFR (CKD-EPI)NonAf POC Glucometer 70 79 Random Glucose Hemoglobin A1c % Calcium Magnesium Total Bilirubin AST ALT Alkaline Phosphatase Total Protein Albumin Triglycerides Cholesterol Total LDL Cholesterol HDL Cholesterol Total Amylase Lipase TSH Free T4 08/26/19 08/26/19 06:20 06:20 WBC RBC Hgb Hct MCV MCH MCHC RDW Plt Count MPV Absolute Neuts (auto) Neutrophils % Lymphocytes % Monocytes % Eosinophils % Basophils % Nucleated RBC % Sodium 140 Potassium 4.2 Chloride 110 H Carbon Dioxide 24 Anion Gap 6 L BUN 5.9 L Creatinine 0.6 Est GFR (CKD-EPI)AfAm 142.76 Est GFR (CKD-EPI)NonAf 123.17 POC Glucometer Random Glucose 78 Hemoglobin A1c % Calcium 8.3 L Magnesium 2.0 Total Bilirubin 0.4 AST 20 ALT 31 Alkaline Phosphatase 81 Total Protein 6.2 L Albumin 2.8 L Triglycerides 113 Cholesterol 140 Total LDL Cholesterol 87 HDL Cholesterol 33 L Total Amylase 149 H Lipase 1052 H TSH 4.26 H Free T4 1.28 Amylase now down < 200. Lipase still 1000 but lipase has a long half-life in the blood. On abdominal exam she has no tenderness. CT scan (my review, not read yet) does not show any significant pancreatic inflammation. At this point the causes of acute pancreatitis include: 1) alcohol - not an issue for her 2) gallstones - not seen on ultrasound. So-called microlithiasis is possible. 3) hypertriglyceridemia - excluded by labs 4) pancreatic cancer - not at all likely 5) pancreas divisum (affects several percent of the population, is an abnormality of pancreatic development and sometimes is a cause of pancreatitis) 6) medications - ARMANDO inhibitors and others - not an issue here 7) "idiopathic" - not able to make the diagnosis based on one episode. I would allow feeding now and obtain an MRCP/MRI pancreas as an outpatient to exclude developmental abnormality of pancreas. Discussed above with patient and her mother.
[2019-08-26] MEDS: ACETAMINOPHEN 325 MG TABLET (FP) PO PRN ×2 (14:02→20:02)
[2019-08-26] MEDS ORDERED: IBUPROFEN 200 MG TABLET PO ONE (14:32)
--- NOTE | 2019-08-26 15:39 | PN ---
Physical Exam: SUBJECTIVE: Patient seen and examined at the bedside. was up for d/c home but developed chest pain before d/c at 1:30pm patient reports chest pain as left sided, constant and feels sharp. chest pain overnight was on right side. this pain of left chest is accompanied by headache. tylenol not helping, given motrin and maalox w/o relief. no shortness of breath. OBJECTIVE: ekg shows nsr, no other findings will send troponins x 3 3:30pm, seen again, patient states her chest pain is still not subsiding, vitals remains stable: will send for chest xray and transfer to [facility] for closer cardiac monitoring. 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 Per patient's mom , patient was born prematurely with microcephaly and was intubated for the first 3 months of her life. She follows closely with a pharmaceutical representative for her Graves disease and was on PTU since age 12, she was taken off PTU and put on Synthroid. Synthroid recently increased four (4) months ago by pharmaceutical representative (she was initially on Synthroid 50mcg and increased to 75mcgs). Patient presents to the ED after she was seen by her primary care doctor for complaints of a 3-day history of epigastric and right upper quadrant pain with nausea. all consents that are needed are to be made by patient's mother [phone] * * per mom, patient is unable to consent for herself due to hx of microcephaly Vital Signs Period Temp Pulse Resp BP Sys/Damon Pulse Ox Last 24 Hr 97.7 F-98.0 F 78-95 16-22 105-147/58-73 96-99 GENERAL: Awake, alert, and oriented, in no acute distress. poor historian HEAD: Normal with no signs of trauma. EYES: Pupils equal, round and reactive to light, extraocular movements intact, sclera anicteric, conjunctiva clear. No lid lag. EARS, NOSE, THROAT: Ears normal, nares patent, oropharynx clear without exudates. Moist mucous membranes. NECK: Normal range of motion, supple without lymphadenopathy, JVD, or masses. LUNGS: Breath sounds equal, clear to auscultation bilaterally. HEART: Regular rate and rhythm ABDOMEN: + epigastric pain ruq pain, + bowel sounds, non distended MUSCULOSKELETAL: Normal range of motion at all joints. No bony deformities or tenderness. No CVA tenderness. UPPER EXTREMITIES: 2+ pulses, warm, well-perfused. No cyanosis. No clubbing. No peripheral edema. LOWER EXTREMITIES: 2+ pulses, warm, well-perfused. No calf tenderness. No peripheral edema. SKIN: Warm, dry, normal turgor, no rashes or lesions noted, normal capillary refill. Laboratory Results - last 24 hr 08/25/19 08/25/19 08/25/19 15:08 15:08 16:50 WBC RBC Hgb Hct MCV MCH MCHC RDW Plt Count MPV Absolute Neuts (auto) Neutrophils % Lymphocytes % Monocytes % Eosinophils % Basophils % Nucleated RBC % Sodium Potassium Chloride Carbon Dioxide Anion Gap BUN Creatinine Est GFR (CKD-EPI)AfAm Est GFR (CKD-EPI)NonAf POC Glucometer 70 Random Glucose Calcium Magnesium Total Bilirubin AST 23 ALT 38 Alkaline Phosphatase 93 Total Protein Albumin Triglycerides Cholesterol Total LDL Cholesterol HDL Cholesterol Total Amylase 206 H Lipase TSH Free T4 08/26/19 08/26/19 08/26/19 05:40 06:20 06:20 WBC 4.5 RBC 3.70 Hgb 10.0 L Hct 30.4 L MCV 82.1 MCH 27.1 MCHC 33.0 RDW 14.0 Plt Count 205 D MPV 9.1 Absolute Neuts (auto) 2.4 Neutrophils % 52.6 D Lymphocytes % 37.0 D Monocytes % 8.4 Eosinophils % 1.7 D Basophils % 0.3 Nucleated RBC % 0 Sodium 140 Potassium 4.2 Chloride 110 H Carbon Dioxide 24 Anion Gap 6 L BUN 5.9 L Creatinine 0.6 Est GFR (CKD-EPI)AfAm 142.76 Est GFR (CKD-EPI)NonAf 123.17 POC Glucometer 79 Random Glucose 78 Calcium 8.3 L Magnesium 2.0 Total Bilirubin 0.4 AST 20 ALT 31 Alkaline Phosphatase 81 Total Protein 6.2 L Albumin 2.8 L Triglycerides Cholesterol Total LDL Cholesterol HDL Cholesterol Total Amylase 149 H Lipase 1052 H TSH 4.26 H Free T4 1.28 08/26/19 06:20 WBC RBC Hgb Hct MCV MCH MCHC RDW Plt Count MPV Absolute Neuts (auto) Neutrophils % Lymphocytes % Monocytes % Eosinophils % Basophils % Nucleated RBC % Sodium Potassium Chloride Carbon Dioxide Anion Gap BUN Creatinine Est GFR (CKD-EPI)AfAm Est GFR (CKD-EPI)NonAf POC Glucometer Random Glucose Calcium Magnesium Total Bilirubin AST ALT Alkaline Phosphatase Total Protein Albumin Triglycerides 113 Cholesterol 140 Total LDL Cholesterol 87 HDL Cholesterol 33 L Total Amylase Lipase TSH Free T4 Active Medications Generic Name Dose Route Start Last Admin Trade Name Freq PRN Reason Stop Dose Admin Acetaminophen 650 mg 08/26/19 13:23 08/26/19 14:02 Tylenol - PO 650 mg Q6H PRN Administration PAIN LEVEL 6-10 Levothyroxine Sodium 37.5 mcg 08/25/19 10:00 08/26/19 09:19 Synthroid Injection - IVPUSH 37.5 mcg DAILY TRAVIS Administration Ondansetron HCl 4 mg 08/24/19 20:05 Zofran Injection IVPUSH Q8H PRN NAUSEA ASSESSMENT/PLAN: Problem List - Problems (1) Chest pain Assessment/Plan: chest pain today, left sided, non radiating, feels sharp, not associated with shortness of breath or dizziness. last night had right sided chest pain, epigastric pain, resolved with maalox today was given motrin, tylenol and maalaox, no relief trending trops transfer to cardiac unit for closer monitor of chest pain cardiology consulted Code(s): R07.9 - CHEST PAIN, UNSPECIFIED (2) Elevated lipase Assessment/Plan: trended down, unknown etiology. discussed with Dr. cramer and started on a regular diet. Code(s): R74.8 - ABNORMAL LEVELS OF OTHER SERUM ENZYMES (3) Acute pancreatitis Assessment/Plan: elevated lipase unclear etiology. medication induced? lipase trended down Code(s): K85.90 - ACUTE PANCREATITIS WITHOUT NECROSIS OR INFECTION, UNSP Qualifiers: Pancreatitis type: unspecified pancreatitis type Acute pancreatitis complication: unspecified Qualified Code(s): K85.90 - Acute pancreatitis without necrosis or infection, unspecified (4) GERD (gastroesophageal reflux disease) Assessment/Plan: protonix Code(s): K21.9 - GASTRO-ESOPHAGEAL REFLUX DISEASE WITHOUT ESOPHAGITIS (5) Headache Assessment/Plan: tylenol prn Code(s): R51 - HEADACHE Qualifiers: Headache type: unspecified Headache chronicity pattern: acute headache Intractability: not intractable Qualified Code(s): R51 - Headache (6) Prophylactic measure Assessment/Plan: fen regular diet monitor electrolytes full code Code(s): Z29.9 - ENCOUNTER FOR PROPHYLACTIC MEASURES, UNSPECIFIED Visit type - Emergency Visit Emergency Visit: Yes ED Registration Date: 08/24/19 Care time: The patient presented to the Emergency Department on the above date and was hospitalized for further evaluation of their emergent condition. - New Patient This patient is new to me today: No - Critical Care Critical Care patient: No - Discharge Referral Referred to [facility] Med P.C.: No
--- NOTE | 2019-08-26 16:51 | EKG ---
Test Reason : Blood Pressure : / mmHG Vent. Rate : 083 BPM Atrial Rate : 083 BPM P-R Int : 144 ms QRS Dur : 068 ms QT Int : 348 ms P-R-T Axes : 049 -02 024 degrees QTc Int : 408 ms NORMAL SINUS RHYTHM NORMAL ECG WHEN COMPARED WITH ECG OF 24-AUG-2019 14:25, NO SIGNIFICANT CHANGE WAS FOUND Confirmed by DARRYL ALFARO MD ([id number]) on 08/26/2019 4:51:28 PM Referred By: Karolina HANLEY Confirmed By:DARRYL ALFARO MD
--- NOTE | 2019-08-26 20:23 | EKG ---
Test Reason : Blood Pressure : / mmHG Vent. Rate : 110 BPM Atrial Rate : 110 BPM P-R Int : 136 ms QRS Dur : 066 ms QT Int : 318 ms P-R-T Axes : 050 006 031 degrees QTc Int : 430 ms SINUS TACHYCARDIA OTHERWISE NORMAL ECG WHEN COMPARED WITH ECG OF 14-NOV-2016 17:36, NO SIGNIFICANT CHANGE WAS FOUND Confirmed by YAHIR MADRID MD ([id number]) on 08/26/2019 8:22:43 PM Referred By: Confirmed By:YAHIR MADRID MD
--- NOTE | 2019-08-26 21:09 | CON.CARD ---
Consult Consult Specialty:: cardiology Reason for Consultation:: chest pain - History of Present Illness Chief Complaint: Pt A&o; still with mild left submammary sticking chest pain that is increased with palpation of the area (no rash); she has had this often at home. History of Present Illness: Patient with history of hypothyroidism on Synthroid, Graves' disease, hydrocephalus presented with complaint of 3-day history of epigastric and right upper quadrant pain with nausea. Patient was seen by PCP office today to rule out cholecystitis or gallstone. Denies vomiting, fever, chills, body aches. Patient has not taken anything for symptoms. Denies diarrhea but report mild constipation with last bowel movement yesterday Timing/Duration: reports: getting worse Quality: reports: moderate, sharpness Abdominal Pain Onset Location: reports: RUQ, epigastric Pain Radiation: reports: back Activities at Onset: reports: none Aggravating Factors: improves with: Voiding - History Source History Provided By: Patient, Medical Record - Past Medical History Pulmonary: No: Asthma ...LMP: 08/21/19 ...: No Endocrine: Yes: Hyperthyroidism - Alcohol/Substance Use Hx Alcohol Use: No History of Substance Use: reports: None - Smoking History Smoking history: Never smoked Have you smoked in the past 12 months: No Aproximately how many cigarettes per day: 0 - Social History ADL: Independent History of Recent Travel: No Home Medications - Allergies Allergies/Adverse Reactions: Allergies Allergy/AdvReac Type Severity Reaction Status Date / Time No Known Allergies Allergy Verified 08/24/19 14:29 - Home Medications Home Medications: Ambulatory Orders Calcium Carbonate [Calcium] 1,200 mg PO DAILY 08/01/15 Cholecalciferol (Vitamin D3) [Vitamin D3] 2,000 unit PO AM 08/01/15 Levothyroxine [Synthroid -] 75 mcg PO DAILY 08/01/15 Vital Signs: Vital Signs Temperature 97.5 F L 08/26/19 18:34 Pulse Rate 84 08/26/19 18:34 Respiratory Rate 18 08/26/19 18:34 Blood Pressure 118/62 08/26/19 18:34 O2 Sat by Pulse Oximetry (%) 97 08/26/19 18:34 - Other Data Labs, Other Data: CBC, BMP 08/26/19 06:20 08/26/19 06:20 Troponin, BNP 08/26/19 14:50 Troponin I < 0.02 Troponin, BNP 08/26/19 14:50 Troponin I < 0.02 Problem List - Problems (1) Hypothyroid Code(s): E03.9 - HYPOTHYROIDISM, UNSPECIFIED (2) Atypical chest pain Assessment/Plan: Her mother, per telephone tonight, says the only family hx of heart disease is "AF in the whole family" She says her daughter has "microcephaly", and her daughter did not tell her about chest pain at home, though the pt now says she sometimes does have it at home. The pain was initially reported under the right breast; now she says it is under the left breast. ECHO pending. TNI < 0.02; f/u serially. If it remains negative, may follow up cardiac status as outpatient. Problems reviewed: Yes Code(s): R07.89 - OTHER CHEST PAIN (3) Overweight Code(s): E66.3 - OVERWEIGHT (4) Sedentary lifestyle Code(s): Z91.89 - OTH PERSONAL RISK FACTORS, NOT ELSEWHERE CLASSIFIED (5) Acute pancreatitis Code(s): K85.90 - ACUTE PANCREATITIS WITHOUT NECROSIS OR INFECTION, UNSP Qualifiers: Pancreatitis type: unspecified pancreatitis type Acute pancreatitis complication: unspecified Qualified Code(s): K85.90 - Acute pancreatitis without necrosis or infection, unspecified (6) Elevated lipase Code(s): R74.8 - ABNORMAL LEVELS OF OTHER SERUM ENZYMES (7) Bilateral pneumonia Code(s): J18.9 - PNEUMONIA, UNSPECIFIED ORGANISM Qualifiers: Pneumonia type: due to unspecified organism (8) GERD (gastroesophageal reflux disease) Code(s): K21.9 - GASTRO-ESOPHAGEAL REFLUX DISEASE WITHOUT ESOPHAGITIS
[2019-08-27] MEDS ORDERED: ONDANSETRON 4 MG/2 ML VIAL IVPUSH PRN (01:07)
[2019-08-27] MEDS ORDERED: ACETAMINOPHEN 325 MG TABLET (FP) PO PRN (01:07)
[2019-08-27] MEDS: LEVOTHYROXINE NA 75 MCG TABLET (FP) PO SCH (06:31)
[2019-08-27 07:56] LABS: ALBUMIN 3.4 g/dl (3.4-5.0); ALK PHOS 102 U/L (45-117); ANION GAP 7 MMOL/L (8-16); BILIRUBIN,TOTAL 0.2 mg/dL (0.2-1); BLOOD UREA NITROGEN 11.2 mg/dL (7-18); CALCIUM 8.9 mg/dL (8.5-10.1); CHLORIDE 107 mmol/L (98-107); CO2 24 mmol/L (21-32); CREATININE 0.7 mg/dL (0.55-1.3); GLUCOSE,RANDOM 88 mg/dL (74-106); MAGNESIUM 2.1 mg/dL (1.8-2.4); POTASSIUM 4.1 mmol/L (3.5-5.1); SGOT/AST 21 U/L (15-37); SGPT/ALT 32 U/L (13-61); SODIUM 138 mmol/L (136-145); TOT PROT 7.6 g/dl (6.4-8.2)
--- NOTE | 2019-08-27 08:13 | PN ---
Progress Note, Physician History of Present Illness: Chief Complaint: Pt A&o; still with mild left submammary sticking chest pain that is increased with palpation of the area (no rash); she has had this often at home. History of Present Illness: Patient with history of hypothyroidism on Synthroid, Graves' disease, hydrocephalus presented with complaint of 3-day history of epigastric and right upper quadrant pain with nausea. Patient was seen by PCP office today to rule out cholecystitis or gallstone. Denies vomiting, fever, chills, body aches. Patient has not taken anything for symptoms. Denies diarrhea but report mild constipation with last bowel movement yesterday Timing/Duration: reports: getting worse Quality: reports: moderate, sharpness Abdominal Pain Onset Location: reports: RUQ, epigastric - Current Medication List Current Medications: Active Medications Acetaminophen (Tylenol -) 650 mg PO Q6H PRN PRN Reason: PAIN LEVEL 6-10 Last Admin: 08/27/19 06:32 Dose: 650 mg Levothyroxine Sodium (Synthroid -) 75 mcg PO [facility] Last Admin: 08/27/19 06:31 Dose: 75 mcg Ondansetron HCl (Zofran Injection) 4 mg IVPUSH Q8H PRN PRN Reason: NAUSEA - Objective Vital Signs: Vital Signs Temperature 97.7 F 08/27/19 05:54 Pulse Rate 81 08/27/19 05:54 Respiratory Rate 18 08/27/19 05:54 Blood Pressure 114/64 08/27/19 05:54 O2 Sat by Pulse Oximetry (%) 98 08/26/19 21:00 Eyes: Yes: WNL, Conjunctiva Clear, EOM Intact HENT: Yes: WNL, Atraumatic, Normocephalic Neck: Yes: WNL, Supple, Trachea Midline Cardiovascular: Yes: WNL, Regular Rate and Rhythm Respiratory: Yes: WNL, Regular, CTA Bilaterally Gastrointestinal: Yes: WNL, Normal Bowel Sounds Genitourinary: Yes: WNL Musculoskeletal: Yes: WNL Extremities: Yes: WNL Edema: No Integumentary: Yes: WNL Neurological: Yes: WNL, Alert, Oriented ...Motor Strength: WNL Psychiatric: Yes: WNL Labs: CBC, BMP 08/27/19 05:50 Assessment/Plan - Problems (1) Hypothyroid Code(s): E03.9 - HYPOTHYROIDISM, UNSPECIFIED (2) Atypical chest pain Assessment/Plan: Her mother, per telephone ter, says the only family hx of heart disease is "AF in the whole family" She says her daughter has "microcephaly", and her daughter did not tell her about chest pain at home, though the pt now says she sometimes does have it at home. The pain was initially reported under the right breast; now she says it is under the left breast. ECHO pending. TNI < 0.02; f/u serially. If it remains negative, may follow up cardiac status as outpatient. Problems reviewed: Yes Code(s): R07.89 - OTHER CHEST PAIN (3) Overweight Code(s): E66.3 - OVERWEIGHT (4) Sedentary lifestyle Code(s): Z91.89 - OTH PERSONAL RISK FACTORS, NOT ELSEWHERE CLASSIFIED (5) Acute pancreatitis Code(s): K85.90 - ACUTE PANCREATITIS WITHOUT NECROSIS OR INFECTION, UNSP Qualifiers: Pancreatitis type: unspecified pancreatitis type Acute pancreatitis complication: unspecified Qualified Code(s): K85.90 - Acute pancreatitis without necrosis or infection, unspecified (6) Elevated lipase Code(s): R74.8 - ABNORMAL LEVELS OF OTHER SERUM ENZYMES (7) Bilateral pneumonia Code(s): J18.9 - PNEUMONIA, UNSPECIFIED ORGANISM Qualifiers: Pneumonia type: due to unspecified organism (8) GERD (gastroesophageal reflux disease) Code(s): K21.9 - GASTRO-ESOPHAGEAL REFLUX DISEASE WITHOUT ESOPHAGITIS
[2019-08-27] MEDS ORDERED: MAG HYDROX/AL HYDROX/SIMETH 30 ML UNIT-DOSE CUP PO PRN (08:45)
[2019-08-27 09:36] LABS: BASO % 0.4 % (0-2.0); EOS % 2.2 % (0-4.5); HEMATOCRIT 36.7 % (32.4-45.2); LYMPH % 28.2 % (8-40); MCH 26.7 pg (25.7-33.7); MCHC 32.5 g/dl (32.0-36.0); MEAN CELL VOLUME 82.2 fl (80-96); MEAN PLT VOLUME 9.5 fl (7.5-11.1); MONO % 7.7 % (3.8-10.2); NEUT % 61.5 % (42.8-82.8); PLATELET COUNT 282 K/MM3 (134-434); RBC 4.47 M/mm3 (3.60-5.2); RDW 14.5 % (11.6-15.6); WHITE BLOOD COUNT 5.1 K/mm3 (4.0-10.0)
--- NOTE | 2019-08-27 12:25 | ECHO ---
Name: LEODAN SMITH Exam:Adult Echocardiogram Study Date: 08/27/2019 09:06 AM Age: 28 yrs Reason For Study: chest pain Height: 63 in Weight: 175 lb BSA: 1.8 m2 MMode/2D Measurements & Calculations RVDd: 2.4 cm Ao root diam: 2.4 cm IVSd: 0.59 cm LA dimension: 3.2 cm LVIDd: 4.0 cm ACS: 1.7 cm LVIDs: 2.4 cm LVPWd: 0.64 cm IVSs: 0.93 cm LVPWs: 1.0 cm EDV(Teich): 70.0 ml ESV(Teich): 21.1 ml Doppler Measurements & Calculations MV E max arvind: 73.8 cm/sec Ao V2 max: 124.1 cm/sec MV A max arvind: 60.2 cm/sec Ao max P.2 mmHg MV E/A: 1.2 Med Peak E' Arvind: 10.0 cm/sec Med E/e': 7.4 Lat Peak E' Arvind: 13.2 cm/sec Lat E/e': 5.6 Procedure A complete two-dimensional transthoracic echocardiogram was performed (2D, M-mode, Doppler and color flow Doppler). Left Ventricle The left ventricle is normal in size. Left ventricular systolic function is normal. Ejection Fraction = 65- 70%. No regional wall motion abnormalities noted. Right Ventricle The right ventricle is normal size. The right ventricular systolic function is normal. Atria The left atrial size is normal. Right atrial size is normal. Mitral Valve The mitral valve is normal in structure and function. There is no mitral regurgitation noted. Tricuspid Valve The tricuspid valve is normal in structure and function. No tricuspid regurgitation. Aortic Valve The aortic valve is normal in structure and function. No aortic regurgitation is present. Pulmonic Valve The pulmonic valve is not well visualized. Great Vessels The aortic root is normal size. Pericardium/Pleura There is no pericardial effusion. Interpretation Summary The left ventricle is normal in size. Left ventricular systolic function is normal. No regional wall motion abnormalities noted. Ejection Fraction = 65-70%. The right ventricular systolic function is normal. The left atrial size is normal. Right atrial size is normal. No significant valvular regurgitations are seen Bud Baker MD 08/27/2019 12:24 PM
--- NOTE | 2019-08-27 13:59 | PN ---
Physical Exam: SUBJECTIVE: Patient seen and examined at the bedside. patient reports her chest pain has resolved, but had developed abdominal pain, mostly on lower quadrants with nausea, no vomiting. She reports 3 episodes of diarrhea this a.m. Asked patient to not flush toilet so we can measure accurately. OBJECTIVE: npo at midnight for mrcp to r/o acute pancreatitis as abdominal pain has returned ekg shows nsr, no other findings troponins negative x 3 seen by hoop maker helper machine, echo with no acute findings. mesenteric lymph notes seen on ct scan, patient informed/mother informed for follow up outpatient in 2 months with repeat scan. 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 Per patient's mom , patient was born prematurely with microcephaly and was intubated for the first 3 months of her life. She follows closely with a [employer] manager for her Graves disease and was on PTU since age 12, she was taken off PTU and put on Synthroid. Synthroid recently increased four (4) months ago by [employer] manager (she was initially on Synthroid 50mcg and increased to 75mcgs). Patient presents to the ED after she was seen by her primary care doctor for complaints of a 3-day history of epigastric and right upper quadrant pain with nausea. all consents that are needed are to be made by patient's mother [phone] * per mom, patient is unable to consent for herself due to hx of microcephaly. Vital Signs Period Temp Pulse Resp BP Sys/Damon Pulse Ox Last 24 Hr 97.3 F-97.8 F 75-85 18-18 108-120/62-80 97-98 GENERAL: Awake, alert, and oriented, in no acute distress. poor historian HEAD: Normal with no signs of trauma. EYES: Pupils equal, round and reactive to light, extraocular movements intact, sclera anicteric, conjunctiva clear. No lid lag. EARS, NOSE, THROAT: Ears normal, nares patent, oropharynx clear without exudates. Moist mucous membranes. NECK: Normal range of motion, supple without lymphadenopathy, JVD, or masses. LUNGS: Breath sounds equal, clear to auscultation bilaterally. HEART: Regular rate and rhythm ABDOMEN: + epigastric pain ruq pain, + bowel sounds, non distended, reports 3 episodes of diarrhea. MUSCULOSKELETAL: Normal range of motion at all joints. No bony deformities or tenderness. No CVA tenderness. UPPER EXTREMITIES: 2+ pulses, warm, well-perfused. No cyanosis. No clubbing. No peripheral edema. LOWER EXTREMITIES: 2+ pulses, warm, well-perfused. No calf tenderness. No peripheral edema. SKIN: Warm, dry, normal turgor, no rashes or lesions noted, normal capillary refill. Laboratory Results - last 24 hr 08/26/19 08/27/19 08/27/19 14:50 01:20 01:20 WBC RBC Hgb Hct MCV MCH MCHC RDW Plt Count MPV Absolute Neuts (auto) Neutrophils % Lymphocytes % Monocytes % Eosinophils % Basophils % Nucleated RBC % Sodium Potassium Chloride Carbon Dioxide Anion Gap BUN Creatinine Est GFR (CKD-EPI)AfAm Est GFR (CKD-EPI)NonAf POC Glucometer Random Glucose Calcium Magnesium Total Bilirubin AST ALT Alkaline Phosphatase Troponin I < 0.02 < 0.02 Cancelled Total Protein Albumin 08/27/19 08/27/19 08/27/19 05:50 05:50 06:41 WBC 5.1 RBC 4.47 Hgb 12.0 Hct 36.7 D MCV 82.2 MCH 26.7 MCHC 32.5 RDW 14.5 Plt Count 282 D MPV 9.5 Absolute Neuts (auto) 3.2 Neutrophils % 61.5 Lymphocytes % 28.2 D Monocytes % 7.7 Eosinophils % 2.2 Basophils % 0.4 Nucleated RBC % 0 Sodium 138 Potassium 4.1 Chloride 107 Carbon Dioxide 24 Anion Gap 7 L BUN 11.2 Creatinine 0.7 Est GFR (CKD-EPI)AfAm 135.70 Est GFR (CKD-EPI)NonAf 117.08 POC Glucometer 98 Random Glucose 88 Calcium 8.9 Magnesium 2.1 Total Bilirubin 0.2 AST 21 ALT 32 Alkaline Phosphatase 102 Troponin I < 0.02 Total Protein 7.6 Albumin 3.4 Active Medications Generic Name Dose Route Start Last Admin Trade Name Freq PRN Reason Stop Dose Admin Acetaminophen 650 mg 08/27/19 01:07 08/27/19 06:32 Tylenol - PO 650 mg Q6H PRN Administration PAIN LEVEL 6-10 Al Hydroxide/Mg Hydroxide 30 ml 08/27/19 08:45 08/27/19 09:50 Mylanta Oral Suspension - PO 30 ml Q6H PRN Administration DYSPEPSIA Levothyroxine Sodium 75 mcg 08/27/19 07:00 08/27/19 06:31 Synthroid - PO 75 mcg ACBK TRAVIS Administration Ondansetron HCl 4 mg 08/27/19 01:07 Zofran Injection IVPUSH Q8H PRN NAUSEA ASSESSMENT/PLAN: Problem List - Problems (1) Chest pain Assessment/Plan: chest pain resolved, negative troponins. reports worse abdominal pain, for MRCP tomorrow. cardiology following, notes appreciated. Code(s): R07.9 - CHEST PAIN, UNSPECIFIED (2) Elevated lipase Assessment/Plan: trended down, unknown etiology. discussed with Dr. cramer and started on a regular diet, however patient developed diarrhea and acute adominal pain. for mrcp. repeat lipase, amylase in a.m. Code(s): R74.8 - ABNORMAL LEVELS OF OTHER SERUM ENZYMES (3) Acute pancreatitis Assessment/Plan: elevated lipase unclear etiology. medication induced? lipase trended down, repeat Code(s): K85.90 - ACUTE PANCREATITIS WITHOUT NECROSIS OR INFECTION, UNSP Qualifiers: Pancreatitis type: unspecified pancreatitis type Acute pancreatitis complication: unspecified Qualified Code(s): K85.90 - Acute pancreatitis without necrosis or infection, unspecified (4) GERD (gastroesophageal reflux disease) Assessment/Plan: protonix Code(s): K21.9 - GASTRO-ESOPHAGEAL REFLUX DISEASE WITHOUT ESOPHAGITIS (5) Headache Assessment/Plan: tylenol prn, states only iv tylenol helps, PO tylenol does not help. Code(s): R51 - HEADACHE Qualifiers: Headache type: unspecified Headache chronicity pattern: acute headache Intractability: not intractable Qualified Code(s): R51 - Headache (6) Prophylactic measure Assessment/Plan: fen regular diet, npo at midnight. scds monitor electrolytes full code Code(s): Z29.9 - ENCOUNTER FOR PROPHYLACTIC MEASURES, UNSPECIFIED Visit type - Emergency Visit Emergency Visit: Yes ED Registration Date: 08/24/19 Care time: The patient presented to the Emergency Department on the above date and was hospitalized for further evaluation of their emergent condition. - New Patient This patient is new to me today: No - Critical Care Critical Care patient: No - Discharge Referral Referred to [facility] Med P.C[facility] No
[2019-08-27] MEDS: ACETAMINOPHEN 1000 MG/100 ML VIAL (NON FORMULARY) IVPB PRN (15:31)
--- NOTE | 2019-08-27 18:27 | PN.GI ---
GI Progress Note Subjective: Patient seen approximately noon today. Episodic abdominal pain continues, including after solid food breakfast this morning. No nausea. Resting comfortable now. No narcotic pain meds administered. - Objective Vital Signs: Vital Signs Temperature 98.0 F 08/27/19 14:00 Pulse Rate 88 08/27/19 14:00 Respiratory Rate 18 08/27/19 10:00 Blood Pressure 124/62 08/27/19 14:00 O2 Sat by Pulse Oximetry (%) 98 08/26/19 21:00 Constitutional: Well Nourished, No Distress, Calm Gastrointestinal Inspection: Yes: WNL ...Auscultate: Yes: Normoactive Bowel Sounds ...Palpate: No: Mass, Tenderness Labs: CBC, BMP 08/27/19 05:50 08/27/19 05:50 Assessment/Plan Mild pancreatitis of uncertain etiology without stones or dilated CBD on US, BUN 11 with little IVF support suggesting excellent prognosis. Plan Diet to clears/soft for now Tylenol PRN pain MRCP when able Patient and mother understand plan and that pancreatitis with recurrent pain for a number of days, and that by most conventional prognostic indices, patient should have a benign course.
[2019-08-27 20:37] LABS: ALBUMIN 3.6 g/dl (3.4-5.0); BILIRUBIN,TOTAL 0.2 mg/dL (0.2-1); BLOOD UREA NITROGEN 12.1 mg/dL (7-18); CALCIUM 9.2 mg/dL (8.5-10.1); CREATININE 0.9 mg/dL (0.55-1.3); MAGNESIUM 2.2 mg/dL (1.8-2.4); POTASSIUM 3.8 mmol/L (3.5-5.1); TOT PROT 7.7 g/dl (6.4-8.2)
[2019-08-27] MEDS ORDERED: SODIUM CHLORIDE 1,000 ML IV SCH (23:00)
[2019-08-28] MEDS: LEVOTHYROXINE NA 75 MCG TABLET (FP) PO SCH ×2 (06:09→12:03)
[2019-08-28] MEDS: ACETAMINOPHEN 1000 MG/100 ML VIAL (NON FORMULARY) IVPB PRN (06:51)
--- NOTE | 2019-08-28 08:01 | PN ---
Progress Note, Physician Chief Complaint: npo at midnight for mrcp to r/o acute pancreatitis as abdominal pain has returned ekg shows nsr, no other findings troponins negative x 3 seen by research and development tester, echo with no acute findings. mesenteric lymph notes seen on ct scan, patient informed/mother informed for follow up outpatient in 2 months with repeat scan. 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 Per patient's mom , patient was born prematurely with microcephaly and was intubated for the first 3 months of her life. 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 Synthroid recently increased four (4) months ago by greenhouse staff (she was initially on Synthroid 50mcg and increased to 75mcgs). Patient presents to the ED after she was seen by her primary care doctor for complaints of a 3-day history of epigastric and right upper quadrant pain with nausea. all consents that are needed are to be made by patient's mother [phone] * per mom, patient is unable to consent for herself due to hx of microcephaly. - Current Medication List Current Medications: Active Medications Acetaminophen (Ofirmev Injection -) 1,000 mg IVPB Q6H PRN PRN Reason: PAIN LEVEL 7 - 10 Last Admin: 08/28/19 06:51 Dose: 1,000 mg Al Hydroxide/Mg Hydroxide (Mylanta Oral Suspension -) 30 ml PO Q6H PRN PRN Reason: DYSPEPSIA Last Admin: 08/27/19 09:50 Dose: 30 ml Sodium Chloride (Normal Saline -) 1,000 mls @ 125 mls/hr IV ASDIR TRAVIS Last Admin: 08/27/19 23:30 Dose: 125 mls/hr Levothyroxine Sodium (Synthroid -) 75 mcg PO ACBK TRAVIS Last Admin: 08/28/19 06:09 Dose: Not Given Ondansetron HCl (Zofran Injection) 4 mg IVPUSH Q8H PRN PRN Reason: NAUSEA - Objective Vital Signs: Vital Signs Temperature 98.6 F 08/28/19 05:24 Pulse Rate 86 08/28/19 05:24 Respiratory Rate 20 08/28/19 05:24 Blood Pressure 100/56 L 08/28/19 05:24 O2 Sat by Pulse Oximetry (%) 98 08/27/19 21:00 Labs: CBC, BMP 08/27/19 05:50 08/27/19 19:45 Problem List - Problems (1) Acute pancreatitis Code(s): K85.90 - ACUTE PANCREATITIS WITHOUT NECROSIS OR INFECTION, UNSP (2) Atypical chest pain Code(s): R07.89 - OTHER CHEST PAIN (3) Elevated lipase Code(s): R74.8 - ABNORMAL LEVELS OF OTHER SERUM ENZYMES (4) Prophylactic measure Code(s): Z29.9 - ENCOUNTER FOR PROPHYLACTIC MEASURES, UNSPECIFIED (5) GERD (gastroesophageal reflux disease) Code(s): K21.9 - GASTRO-ESOPHAGEAL REFLUX DISEASE WITHOUT ESOPHAGITIS (6) Headache Code(s): R51 - HEADACHE Qualifiers: Headache type: unspecified Headache chronicity pattern: acute headache Intractability: not intractable Qualified Code(s): R51 - Headache (7) Hyperthyroidism Code(s): E05.90 - THYROTOXICOSIS, UNSP WITHOUT THYROTOXIC CRISIS OR STORM
[2019-08-28 11:24] VITALS: TEMP 98
[2019-08-28 11:42] LABS: BASO % 0.3 % (0-2.0); EOS % 1.3 % (0-4.5); HEMATOCRIT 33.3 % (32.4-45.2); HEMOGLOBIN 10.8 GM/dL (10.7-15.3); LYMPH % 25.1 % (8-40); MCH 26.6 pg (25.7-33.7); MCHC 32.4 g/dl (32.0-36.0); MEAN CELL VOLUME 82.2 fl (80-96); MEAN PLT VOLUME 8.9 fl (7.5-11.1); MONO % 4.9 % (3.8-10.2); NEUT % 68.4 % (42.8-82.8); PLATELET COUNT 272 K/MM3 (134-434); RBC 4.05 M/mm3 (3.60-5.2); RDW 14.3 % (11.6-15.6); WHITE BLOOD COUNT 4.8 K/mm3 (4.0-10.0)
[2019-08-28 12:17] LABS: ALBUMIN 3.1 g/dl (3.4-5.0); BILIRUBIN,TOTAL 0.3 mg/dL (0.2-1); BLOOD UREA NITROGEN 8.4 mg/dL (7-18); CALCIUM 8.5 mg/dL (8.5-10.1); CREATININE 0.7 mg/dL (0.55-1.3); MAGNESIUM 1.9 mg/dL (1.8-2.4); POTASSIUM 3.9 mmol/L (3.5-5.1); TOT PROT 6.9 g/dl (6.4-8.2)
[2019-08-28 13:51] VITALS: BP 126/80; PULSE 93
--- NOTE | 2019-08-28 14:00 | DS ---
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 Per patient's mom , patient was born prematurely with microcephaly and was intubated for the first 3 months of her life. She follows closely with a technical program manager for her Graves disease and was on PTU since age 12, she was taken off PTU and put on Synthroid. Synthroid recently increased four (4) months ago by technical program manager . MRCP was done that showed no cholcycstitis, stones, or acute pancreatatis. Tolerated full diet Vital Signs Period Temp Pulse Resp BP Sys/Damon Pulse Ox Last 24 Hr 98 F-98.6 F 86-93 18-20 100-126/56-80 98-98 PHYSICAL EXAM GENERAL: Awake, alert, and oriented, in no acute distress. poor historian HEAD: Normal with no signs of trauma. EYES: Pupils equal, round and reactive to light, extraocular movements intact, sclera anicteric, conjunctiva clear. No lid lag. EARS, NOSE, THROAT: Ears normal, nares patent, oropharynx clear without exudates. Moist mucous membranes. NECK: Normal range of motion, supple without lymphadenopathy, JVD, or masses. LUNGS: Breath sounds equal, clear to auscultation bilaterally. HEART: Regular rate and rhythm ABDOMEN: + epigastric pain ruq pain, + bowel sounds, non distended, reports 3 episodes of diarrhea. MUSCULOSKELETAL: Normal range of motion at all joints. No bony deformities or tenderness. No CVA tenderness. UPPER EXTREMITIES: 2+ pulses, warm, well-perfused. No cyanosis. No clubbing. No peripheral edema. LOWER EXTREMITIES: 2+ pulses, warm, well-perfused. No calf tenderness. No peripheral edema. SKIN: Warm, dry, normal turgor, no rashes or lesions noted, normal capillary refill. LABS Laboratory Results - last 24 hr 08/27/19 08/28/19 08/28/19 19:45 11:00 11:00 WBC 4.8 RBC 4.05 Hgb 10.8 Hct 33.3 MCV 82.2 MCH 26.6 MCHC 32.4 RDW 14.3 Plt Count 272 MPV 8.9 Absolute Neuts (auto) 3.3 Neutrophils % 68.4 Lymphocytes % 25.1 Monocytes % 4.9 Eosinophils % 1.3 Basophils % 0.3 Nucleated RBC % 0 Sodium 139 140 Potassium 3.8 3.9 Chloride 107 108 H Carbon Dioxide 25 25 Anion Gap 7 L 6 L BUN 12.1 8.4 Creatinine 0.9 0.7 Est GFR (CKD-EPI)AfAm 100.14 135.70 Est GFR (CKD-EPI)NonAf 86.41 117.08 Random Glucose 106 105 Calcium 9.2 8.5 Magnesium 2.2 1.9 Total Bilirubin 0.2 0.3 AST 20 20 ALT 34 29 Alkaline Phosphatase 106 88 Total Protein 7.7 6.9 Albumin 3.6 3.1 L Total Amylase 77 Lipase 276 HOSPITAL COURSE: Date of Admission:08/24/19 Date of Discharge: 08/28/19 Problem List - Problems (1) Chest pain Assessment/Plan: chest pain resolved, negative troponins. reports worse abdominal pain, for MRCP negative seen by cardiology Code(s): R07.9 - CHEST PAIN, UNSPECIFIED (2) Elevated lipase Assessment/Plan: trended down, unknown etiology. MRCP noted. Tolerated regular diet withour n/v or pain Code(s): R74.8 - ABNORMAL LEVELS OF OTHER SERUM ENZYMES (3) Acute pancreatitis Assessment/Plan: elevated lipase unclear etiology. possibly medication induced lipase trended down, MRCP negative Code(s): K85.90 - ACUTE PANCREATITIS WITHOUT NECROSIS OR INFECTION, UNSP Qualifiers: Pancreatitis type: unspecified pancreatitis type Acute pancreatitis complication: unspecified Qualified Code(s): K85.90 - Acute pancreatitis without necrosis or infection, unspecified (4) GERD (gastroesophageal reflux disease) Assessment/Plan: c/ wprotonix Code(s): K21.9 - GASTRO-ESOPHAGEAL REFLUX DISEASE WITHOUT ESOPHAGITIS (5) Headache Assessment/Plan: resolved tylenol prn,. Code(s): R51 - HEADACHE Qualifiers: Headache type: unspecified Headache chronicity pattern: acute headache Intractability: not intractable Qualified Code(s): R51 - Headache (6) Prophylactic measure Assessment/Plan: fen regular diet,Medcially stable for discharge to home with follow up in 1 week with PCP Minutes to complete discharge: 55 Discharge Summary Problems reviewed: Yes Reason For Visit: ACUTE PANCREATITIS Current Active Problems Abdominal pain (Acute) Acute pancreatitis (Acute) Atypical chest pain (Acute) Chest pain (Acute) Elevated lipase (Acute) Hypothyroid (Acute) Overweight (Acute) Prophylactic measure (Acute) Sedentary lifestyle (Acute) Hospital Course: HOSPITAL COURSE: Date of Admission:08/24/19 Date of Discharge: 08/28/19 Problem List - Problems (1) Chest pain Assessment/Plan: chest pain resolved, negative troponins. reports worse abdominal pain, for MRCP negative seen by cardiology Code(s): R07.9 - CHEST PAIN, UNSPECIFIED (2) Elevated lipase Assessment/Plan: trended down, unknown etiology. MRCP noted. Tolerated regular diet withour n/v or pain Code(s): R74.8 - ABNORMAL LEVELS OF OTHER SERUM ENZYMES (3) Acute pancreatitis Assessment/Plan: elevated lipase unclear etiology. possibly medication induced lipase trended down, MRCP negative Code(s): K85.90 - ACUTE PANCREATITIS WITHOUT NECROSIS OR INFECTION, UNSP Qualifiers: Pancreatitis type: unspecified pancreatitis type Acute pancreatitis complication: unspecified Qualified Code(s): K85.90 - Acute pancreatitis without necrosis or infection, unspecified (4) GERD (gastroesophageal reflux disease) Assessment/Plan: c/ wprotonix Code(s): K21.9 - GASTRO-ESOPHAGEAL REFLUX DISEASE WITHOUT ESOPHAGITIS (5) Headache Assessment/Plan: resolved tylenol prn,. Code(s): R51 - HEADACHE Qualifiers: Headache type: unspecified Headache chronicity pattern: acute headache Intractability: not intractable Qualified Code(s): R51 - Headache (6) Prophylactic measure Assessment/Plan: fen regular diet,Medcially stable for discharge to home with follow up in 1 week with PCP - Instructions Diet, Activity, Other Instructions: YOUR VISIT You came to the hospital because had a abdominal pain.and nausea You were admitted to the hospital to rule out pancreatatis or gall bladder problems. You were seen by the GI doctor an MRCP (MRI) was done that showed no problems with your gallbladder ot pancreas. Eat a diet of low fat and cholesterol. MEDICATIONS Please continue to take your home medications as prescribed ADDITIONAL CARE Please make an appointment to see your primary care provider, 1 week from today. ADDITIONAL INFORMATION Please call 911 or come directly to the emergency department if you experience unusual headache, vision change, shortness of breath, chest pain, numbness, tingling, loss of alertness/awareness, loss of function, additional abdominal pain, unusual bleeding or any alarming symptoms Referrals: Rj Kiser [facility] [Primary Care Provider] - 1 Week Disposition: HOME - Home Medications Comprehensive Discharge Medication List: Ambulatory Orders Calcium Carbonate [Calcium] 1,200 mg PO DAILY 08/01/15 Cholecalciferol (Vitamin D3) [Vitamin D3] 2,000 unit PO AM 08/01/15 Levothyroxine [Synthroid -] 75 mcg PO DAILY 08/01/15 Problem List - Problems (1) Acute pancreatitis Problems reviewed: Yes Code(s): K85.90 - ACUTE PANCREATITIS WITHOUT NECROSIS OR INFECTION, UNSP (2) Atypical chest pain Code(s): R07.89 - OTHER CHEST PAIN (3) Elevated lipase Code(s): R74.8 - ABNORMAL LEVELS OF OTHER SERUM ENZYMES (4) Prophylactic measure Code(s): Z29.9 - ENCOUNTER FOR PROPHYLACTIC MEASURES, UNSPECIFIED (5) GERD (gastroesophageal reflux disease) Code(s): K21.9 - GASTRO-ESOPHAGEAL REFLUX DISEASE WITHOUT ESOPHAGITIS (6) Headache Code(s): R51 - HEADACHE Qualifiers: Headache type: unspecified Headache chronicity pattern: acute headache Intractability: not intractable Qualified Code(s): R51 - Headache (7) Hyperthyroidism Code(s): E05.90 - THYROTOXICOSIS, UNSP WITHOUT THYROTOXIC CRISIS OR STORM This patient is new to me today: Yes Date on this admission: 08/28/19 Emergency Visit: Yes ED Registration Date: 08/24/19 Care time: The patient presented to the Emergency Department on the above date and was hospitalized for further evaluation of their emergent condition. Critical Care patient: No - Discharge Referral Referred to [facility] No
== END 2019-08-28 14:39 | disposition home or self-care (01) | DRG 948 ==
LOC: JER 14:22 → JERBED 17:15 → J7W 20:12 → J4W 08-26 18:29
PROVIDERS: ADMIT Hospitalist; ATTEND Nurse Practitioner Acute Care
DX: R74.8 Abnormal levels of other serum enzymes (principal); G91.9 Hydrocephalus, unspecified; E03.9 Hypothyroidism, unspecified; E05.00 Thyrotoxicosis with diffuse goiter without thyrotoxic crisis or storm; Q02 Microcephaly; M41.9 Scoliosis, unspecified; M81.0 Age-related osteoporosis without current pathological fracture; K21.9 Gastro-esophageal reflux disease without esophagitis; R07.89 Other chest pain; E66.3 Overweight; Z68.31 Body mass index [BMI] 31.0-31.9, adult
CPT/HCPCS: 36415; 71045-TC-FY; 74176-TC; 74182-TC; 76705-TC; 80048; 80053; 80061; 81003; 82150; 82962; 83036; 83690; 83721; 83735; 84075; 84436; 84439; 84443; 84450; 84460; 84484; 84703; 85025; 85027; 93005; 93010; 93306-TC; 99283-25; J0131; J7030; Q0162

== ENCOUNTER 2021-03-09 19:48 | Emergency (ER) | payer OTHER ==
[2021-03-09 20:00] VITALS: BP 123/84; PULSE 111; TEMP 99; BMI 31.5
[2021-03-09] MEDS ORDERED: LIDOCAINE HCL 2% JELLY 10 ML CARTRIDGE TP ONE (20:38)
[2021-03-09] MEDS ORDERED: DIPHTH,PERTUSS(ACELL),TET 0.5 ML DISP.SYRIN IM ONE ×2 (20:39→20:47)
[2021-03-09] MEDS ORDERED: LIDOCAINE HCL 2% JELLY 10 ML CARTRIDGE ONE (20:45)
== END 2021-03-09 22:24 | disposition home or self-care (01) ==
LOC: JER 19:48
PROC: 0HQ0XZZ Repair Scalp Skin, External Approach (ICD-10-PCS; principal; 2021-03-09)
PROC: 3E0234Z Introduction of Serum, Toxoid and Vaccine into Muscle, Percutaneous Approach (ICD-10-PCS; 2021-03-09)
DX: S01.01XA Laceration without foreign body of scalp, initial encounter (principal); S00.90XA Unspecified superficial injury of unspecified part of head, initial encounter; S06.0X0A Concussion without loss of consciousness, initial encounter
CPT/HCPCS: 70450-TC; 90471; 90715; 99284-25

== ENCOUNTER 2021-03-19 07:05 | Emergency (ER) | payer OTHER ==
[2021-03-19 07:43] VITALS: BP 105/70; PULSE 87; TEMP 98.3; BMI 31.5
== END 2021-03-19 07:59 | disposition home or self-care (01) ==
LOC: JERFT 07:05
DX: Z48.02 Encounter for removal of sutures (principal)
CPT/HCPCS: 99281-25

== ENCOUNTER 2021-04-19 01:17 | Emergency (ER) | payer OTHER ==
[2021-04-19 02:02] VITALS: BMI 32.1
[2021-04-19 02:40] LABS: PH,URINE 6.5 (5.0-8.0); URINE APPEARANCE CLEAR; URINE BILIRUBIN NEGATIVE (NEGATIVE); URINE COLOR YELLOW; URINE GLUCOSE (UA) NEGATIVE (NEGATIVE); URINE KETONE NEGATIVE (NEGATIVE); URINE LEUK ESTERASE NEGATIVE (NEGATIVE); URINE NITRITE NEGATIVE (NEGATIVE); URINE PROTEIN NEGATIVE (NEGATIVE); URINE UROBILINOGEN 0.2 mg/dL (0.2-1.0)
[2021-04-19 02:56] LABS: BASO % 0.7 % (0-2.0); EOS % 0.7 % (0-4.5); HEMATOCRIT 39.3 % (32.4-45.2); MCH 27.6 pg (25.7-33.7); MCHC 33.1 g/dl (32.0-36.0); MEAN CELL VOLUME 83.4 fl (80-96); MEAN PLT VOLUME 8.9 fl (7.5-11.1); MONO % 6.1 % (3.8-10.2); NEUT % 72.5 % (42.8-82.8); PLATELET COUNT 323 10^3/uL (134-434); RBC 4.71 M/mm3 (3.60-5.2); RDW 14.1 % (11.6-15.6); WHITE BLOOD COUNT 7.2 K/mm3 (4.0-10.0)
[2021-04-19] MEDS ORDERED: ACETAMINOPHEN 325 MG TABLET (FP) PO ONE (03:10)
[2021-04-19 03:17] LABS: CALCIUM 8.9 mg/dL (8.5-10.1)
[2021-04-19 03:18] LABS: ALBUMIN 4.1 g/dl (3.4-5.0); BLOOD UREA NITROGEN 8.7 mg/dL (7-18)
[2021-04-19] MEDS ORDERED: ACETAMINOPHEN 325 MG TABLET (FP) ONE (03:20)
[2021-04-19 03:21] LABS: CREATININE 0.9 mg/dL (0.55-1.3)
[2021-04-19 03:22] LABS: BILIRUBIN,TOTAL 0.2 mg/dL (0.2-1); TOT PROT 8.3 g/dl (6.4-8.2)
[2021-04-19 03:38] VITALS: TEMP 98.1
[2021-04-19] MEDS ORDERED: LEVOTHYROXINE NA 25 MCG TABLET (FP) PO ONE (03:38)
[2021-04-19] MEDS ORDERED: LEVOTHYROXINE NA 25 MCG TABLET (FP) ONE (03:41)
[2021-04-19 03:52] VITALS: BP 128/62; PULSE 82
== END 2021-04-19 03:54 | disposition home or self-care (01) ==
LOC: JER 01:17
DX: R51.9 Headache, unspecified (principal); E03.9 Hypothyroidism, unspecified
CPT/HCPCS: 36415; 80053; 81003; 82962; 84439; 84443; 84703; 85025; 87086; 99283-25

== ENCOUNTER 2021-11-07 15:54 | Emergency (ER) | payer OTHER ==
[2021-11-07 16:02] VITALS: BP 156/67; TEMP 97.8; BMI 31.1
[2021-11-07] MEDS ORDERED: IBUPROFEN 400 MG TABLET (FP) PO ONE ×2 (16:15→16:21)
[2021-11-07 17:28] VITALS: PULSE 97
== END 2021-11-07 18:16 | disposition home or self-care (01) ==
LOC: FER 15:54
DX: S86.911A Strain of unspecified muscle(s) and tendon(s) at lower leg level, right leg, initial encounter (principal)
CPT/HCPCS: 93971-TC; 99284-25

== ENCOUNTER 2022-03-28 09:57 | Emergency (ER) | payer OTHER ==
[2022-03-28 10:15] VITALS: BMI 31.1
[2022-03-28] MEDS ORDERED: ALBUTEROL SO4 2.5/IPRATROPIUM 0.5 INH SOL 3 ML VIAL.NEB. NEB SCH (11:00)
[2022-03-28] MEDS ORDERED: ALBUTEROL SO4 2.5/IPRATROPIUM 0.5 INH SOL 3 ML VIAL.NEB. NEB ONE (11:05)
[2022-03-28] MEDS ORDERED: IBUPROFEN 600 MG TABLET (FP) PO ONE ×2 (11:31→11:54)
[2022-03-28 11:35] LABS: BASO % 0.2 % (0-2.0); HEMATOCRIT 39.3 % (32.4-45.2); LYMPH % 21.7 % (8-40); MCH 27.5 pg (25.7-33.7); MCHC 33.1 g/dl (32.0-36.0); MEAN CELL VOLUME 82.9 fl (80-96); MEAN PLT VOLUME 9.3 fl (7.5-11.1); MONO % 8.9 % (3.8-10.2); NEUT % 67.2 % (42.8-82.8); PLATELET COUNT 244 10^3/uL (134-434); RBC 4.74 M/mm3 (3.60-5.2); RDW 13.8 % (11.6-15.6); WHITE BLOOD COUNT 5.1 K/mm3 (4.0-10.0)
[2022-03-28 12:00] LABS: ALBUMIN 3.9 g/dl (3.4-5.0); BLOOD UREA NITROGEN 11.7 mg/dL (7-18)
[2022-03-28 12:03] LABS: CREATININE 0.8 mg/dL (0.55-1.3)
[2022-03-28 12:04] VITALS: TEMP 97.3
[2022-03-28 12:05] LABS: BILIRUBIN,TOTAL 0.3 mg/dL (0.2-1); TOT PROT 8.3 g/dl (6.4-8.2)
[2022-03-28] MEDS ORDERED: SODIUM CHLORIDE 1,000 ML IV ONE (12:16)
[2022-03-28 15:00] VITALS: PULSE 86
[2022-03-28 15:01] VITALS: BP 103/56
== END 2022-03-28 15:17 | disposition home or self-care (01) ==
LOC: JER 09:57
PROC: 3E0F7GC Introduction of Other Therapeutic Substance into Respiratory Tract, Via Natural or Artificial Opening (ICD-10-PCS; principal; 2022-03-28)
PROC: 3E0337Z Introduction of Electrolytic and Water Balance Substance into Peripheral Vein, Percutaneous Approach (ICD-10-PCS; 2022-03-28)
DX: R05.9 Cough, unspecified (principal)
CPT/HCPCS: 0241U-QW; 36415; 71046-TC-FY; 80053; 83735; 84443; 85025; 87040; 93005; 93010; 99285-25

== ENCOUNTER 2024-07-16 19:53 | Emergency (ER) | payer OTHER ==
[2024-07-16 20:00] VITALS: BP 116/73; PULSE 83; RESP 17; TEMP 98.5; BMI 31.5
[2024-07-16] MEDS ORDERED: ACETAMINOPHEN INJECTION 100 ML ONE (20:58)
[2024-07-16 20:59] LABS: BASO % 0.5 % (0-2.0); EOS % 1.5 % (0-4.5); HEMATOCRIT 39.9 % (32.4-45.2); LYMPH % 28.8 % (8-40); MCH 27.3 pg (25.7-33.7); MCHC 32.6 g/dl (32.0-36.0); MEAN CELL VOLUME 83.8 fl (80-96); MEAN PLT VOLUME 9.1 fl (7.5-11.1); MONO % 5.4 % (3.8-10.2); NEUT % 63.8 % (42.8-82.8); PLATELET COUNT 303 10^3/uL (134-434); RBC 4.76 M/mm3 (3.60-5.2); RDW 14.5 % (11.6-15.6); WHITE BLOOD COUNT 6.3 K/mm3 (4.0-10.0)
[2024-07-16] MEDS: SODIUM CHLORIDE 0.9% 500 ML INFUS.BAG IV ONE (21:07)
[2024-07-16] MEDS: ACETAMINOPHEN 1000 MG/100 ML BAG IVPB ONE (21:09)
[2024-07-16 21:19] LABS: POTASSIUM 3.7 mmol/L (3.5-5.1)
[2024-07-16 21:21] LABS: CALCIUM 8.8 mg/dL (8.5-10.1)
[2024-07-16 21:22] LABS: ALBUMIN 3.8 g/dl (3.4-5.0); BLOOD UREA NITROGEN 13.3 mg/dL (7-18); MAGNESIUM 1.9 mg/dL (1.8-2.4)
[2024-07-16 21:25] LABS: CREATININE 0.8 mg/dL (0.55-1.3); PHOSPHOROUS 3.2 mg/dL (2.5-4.9)
[2024-07-16 21:26] LABS: BILIRUBIN,TOTAL 0.4 mg/dL (0.2-1); TOT PROT 7.6 g/dl (6.4-8.2)
== END 2024-07-16 22:36 | disposition home or self-care (01) ==
LOC: JER 19:53
PROC: 3E033NZ Introduction of Analgesics, Hypnotics, Sedatives into Peripheral Vein, Percutaneous Approach (ICD-10-PCS; principal; 2024-07-16)
DX: R00.2 Palpitations (principal); R51.9 Headache, unspecified; Z20.822 Contact with and (suspected) exposure to COVID-19
CPT/HCPCS: 0241U-QW; 36415; 71046-TC-FY; 80053; 83735; 84100; 84439; 84443; 84484; 84703; 85025; 93005; 93010; 96374; 99285-25; J0131